=== PATIENT | female | born 1980 | race Caucasian/White ===

== ENCOUNTER 2020-10-18 16:51 | Emergency (ER) | payer BC, SELFPAY ==
--- NOTE | ~2020-10-18 | XR_ITS ---
EXAMINATION: XR hand LT min 3V EXAM DATE: 10/18/2020 17:12 INDICATION: Trauma fell bent fingers2-4backwards/pain knuckles to pip2-4. Initial encounter. TECHNIQUE: Left hand frontal, lateral and oblique projections obtained and reviewed. There is no adriana or study for comparison. FINDINGS: Left metacarpal bones are unremarkable. There are no acute fractures or dislocations ident ified. There is no subcutaneous gas. The soft tissue is unremarkable. There are no radiopaque for eign bodies. IMPRESSION: No acute osseous findings. Reviewed, dictated and finalized at location A. IMPRESSION: No acute osseous findings.
--- NOTE | 2020-10-18 17:00 | ED.UPPEXIN ---
HPI - Extremity Injury (Upper) General Chief Complaint: Extremity Problem,Nontraumatic Stated Complaint: left hand Time Seen by Provider: 10/18/20 17:00 Source: patient and RN notes reviewed Mode of arrival: ambulatory Limitations: no limitations History of Present Illness HPI narrative: 40 presents to the [facility] with complaints of left hand pain after tripping and falling forward. Patient states she landed on her left hand and bent fingers 2 through 5 backwards. Denies hitting head. No loss of consciousness. No snuffbox tenderness. Has full range of motion of the thumb, wrist, elbow and shoulder. No midline tenderness. Tender through the knuckles of fingers 2,3,4 and 5 along with PIP joints of 2,3,4 and 5. Minor swelling noted to the dorsal aspect Pain with making a fist. pain with movement of finger 2,3,4,5 Related Data Home Medications Medication Instructions Recorded Confirmed clonazepam 0.5 mg PO DAILY 10/18/20 10/18/20 duloxetine 60 mg PO DAILY 10/18/20 10/18/20 lamotrigine 100 mg PO DAILY 10/18/20 10/18/20 lisdexamfetamine [Vyvanse] 50 mg PO DAILY 10/18/20 10/18/20 Allergies Allergy/AdvReac Type Severity Reaction Status Date / Time codeine Allergy Severe Anaphylaxis Verified 10/18/20 17:08 Review of Systems Review of Systems: All systems reviewed & are unremarkable except as noted in HPI and below Constitutional: Constitutional: Reports no additional constitutional complaints, Denies chills and Denies fever(s) Eyes: Eyes: Reports no additional eye complaints, Denies change in vision and Denies photophobia Cardiovascular: Cardiovascular: Reports no additional cardiovascular complaints and Denies chest pain Respiratory: Respiratory: Reports no additional respiratory complaints, Denies cough and Denies dyspnea Gastrointestinal: Gastrointestinal: Reports no additional gastrointestinal complaints Musculoskeletal: Musculoskeletal: Reports as per HPI, Denies back pain, Reports arthralgias and Reports joint swelling Comments: Pain to the dorsal aspect left hand Integumentary/Breasts: Skin/Breast: Reports system reviewed and no additional complaints, except as docu, Denies erythema and Denies rash Neurologic: Reports system reviewed and no additional complaints, except as documented, Denies vertigo, Denies dizziness, Denies syncope, Denies headache(s), Denies focal weakness, Denies numbness and Denies weakness Psychiatric: Psychiatric: Reports no additional psychiatric complaints Allergic/Immunologic: Allergic/Immunologic: Reports no additional allergic/immunologic complaints PMFSH Family History Family History Father Family history of lung cancer Mother Family history of malignant neoplasm of esophagus Social History Social History Smoking status: Never smoker Alcohol intake: never Gender identity (if verbalized by the patient): Female Comments At the time of my signature, I reviewed and agree with the nursing past medical, surgical, social, and family history. There is no relevant family history pertinent to the patient complaint. Exam Const: General: healthy appearing, no acute distress and alert Nutritional Appearance: well nourished Orientation/consciousness: patient oriented x3 Limitations: no limitations HENMT: Head: normal to inspection Eyes: Pupils: Equal, round and reactive pupils present Neck: Neck: normal visual inspection, no lymphadenopathy and no meningeal signs Chest: Chest palpation & inspection: normal inspection of the chest Resp: Effort & Inspection: normal respiratory effort and no use of accessory muscles Auscultation: clear to auscultation bilaterally, no crackles, no rales, no rhonchi and no wheezes Cardio: Rate: regular rate Rhythm: regular rhythm Back/Spine/Pelvis: Back: no CVA tenderness Cervical Spine: normal cervical lordosis, cervical ROM normal and No
[2020-10-18 17:01] VITALS: BP 109/62; PULSE 78; RESP 18; TEMP 36.6; O2SAT 99
== END 2020-10-18 17:32 | disposition home or self-care (01) ==
PROVIDERS: Emergency Provider Nurse Practitioner
DX: S69.82XA Other specified injuries of left wrist, hand and finger(s), initial encounter (principal); W01.0XXA Fall on same level from slipping, tripping and stumbling without subsequent striking against object, initial encounter; F41.9 Anxiety disorder, unspecified; F32.9 Major depressive disorder, single episode, unspecified
CPT/HCPCS: 73130; 99213; G0463

== ENCOUNTER 2021-08-18 12:27 | Emergency (ER) | payer SELFPAY ==
[2021-08-18 12:39] VITALS: BP 110/68; PULSE 83; RESP 18; TEMP 36.8; O2SAT 100
--- NOTE | 2021-08-18 12:43 | ED.EYEPROB ---
HPI - Eye Problem General Chief complaint: Eye Problems Stated complaint: stye on rt eyelid Time Seen by Provider: 08/18/21 12:43 Source: patient Mode of arrival: ambulatory Limitations: no limitations History of Present Illness HPI Narrative: 41-year-old female presents with complaint of swelling, redness to lower lid of right eye for 3 to 5 days. Reports that it started small and is getting progressively worse with tenderness. No vision change. Does wear contacts but has had them out for several days since symptom started. All systems reviewed and negative except as noted above. Related Data Home Medications Medication Instructions Recorded Confirmed clonazepam 0.5 mg PO DAILY 10/18/20 08/18/21 duloxetine 60 mg PO DAILY 10/18/20 08/18/21 lamotrigine 100 mg PO DAILY 10/18/20 08/18/21 lisdexamfetamine [Vyvanse] 50 mg PO DAILY 10/18/20 08/18/21 Allergies Allergy/AdvReac Type Severity Reaction Status Date / Time codeine Allergy Severe Anaphylaxis Verified 08/18/21 12:43 Review of Systems Review of Systems: CONSTITUTIONAL: Denies fever, chills, or sweats. EYES: Denies visual changes, redness, or discharge. Reports erythema swelling tenderness to right lower lid. ENT: Denies rhinorrhea, congestion, sore throat, or otalgia. CARDIOVASCULAR: Denies chest pain, palpitations, or edema. RESPIRATORY: Denies cough or dyspnea. GASTROINTESTINAL: Denies abdominal pain, nausea, vomiting, or diarrhea. GENITOURINARY: Denies dysuria or hematuria. SKIN: Denies rash or itching. MUSCULOSKELETAL: Denies back pain, joint pain, or myalgia. NEUROLOGIC: Denies headache, numbness, or weakness. PSYCHIATRIC: Denies anxiety or depression. All other systems reviewed are negative, except as documented in HPI. [facility] Family History Family History Father Family history of lung cancer Mother Family history of malignant neoplasm of esophagus Social History Social History Smoking status: Never smoker Alcohol intake: never Gender identity (if verbalized by the patient): Female Comments At time of signature, agree with nursing past medical, surgical, social and family history. There is no relevant family history pertinent to the presenting complaint. Exam Narrative: GENERAL: This is a well-nourished, well-developed patient, in no apparent distress. HEAD: normocephalic, atraumatic. EYES: PERRL. Sclera clear/white. Vision is grossly intact. Erythema, swelling, tenderness to right lower lid. White pustule to internal aspect of right lower lid. EARS: External ears normal NOSE: External nose normal NECK: Neck supple, non-tender without lymphadenopathy, masses or thyromegaly. CARDIOVASCULAR: Regular rate and rhythm without murmurs, gallops, or rubs. RESPIRATORY: Clear to auscultation. Breath sounds equal bilaterally. No wheezes, rales, or rhonchi. SKIN: warm, Dry, intact with no suspicious lesions or rash, good texture and turgor. NEURO: awake, alert, and oriented to person, place and time. There were no obvious focal neurologic abnormalities. EXTREMITIES: Normal range of motion to all extremities. Course Course Level of Care: Express Care Visit Vital Signs Vital signs: Vital Signs Temperature 36.8 C 08/18/21 12:39 Pulse Rate 83 08/18/21 12:39 Respiratory Rate 18 08/18/21 12:39 Blood Pressure 110/68 08/18/21 12:39 Pulse Oximetry 100 08/18/21 12:39 Temperature 36.8 C 08/18/21 12:39 Pulse Rate 83 08/18/21 12:39 Respiratory Rate 18 08/18/21 12:39 Blood Pressure 110/68 08/18/21 12:39 Pulse Oximetry 100 08/18/21 12:39 Reviewed MDM - Eye Problem MDM Narrative Medical decision making narrative: Patient is aware of diagnosis, understands and agrees to treatment plan. Anticipatory guidance given. Patient agrees to follow-up as directed and is aware of reasons to seek care at the emergency departm
== END 2021-08-18 12:51 | disposition home or self-care (01) ==
PROVIDERS: Emergency Provider Nurse Practitioner Family; PCP Student in an Organized Health Care Education/Training Program
DX: H00.022 Hordeolum internum right lower eyelid (principal); F41.9 Anxiety disorder, unspecified; F32.A Depression, unspecified
CPT/HCPCS: 99213; G0463

== ENCOUNTER 2022-12-29 17:13 | Emergency (ER) | payer OTHER, SELFPAY ==
--- NOTE | 2022-12-29 17:16 | ED.EYEPROB ---
HPI - Eye Problem General Chief complaint: Eye Problems Stated complaint: Right Eye Irritation Time Seen by Provider: 12/29/22 17:16 Source: patient Mode of arrival: ambulatory Limitations: no limitations History of Present Illness HPI Narrative: Marshall is a 42-year-old female patient presenting to the clinic today with complaints of right eye irritation 1-2 days She reports she has had red, itchy, clear watery eyes. Does have some mild soreness to the right eye without any purulent drainage. Is concerned about pinkeye. Related Data Home Medications Medication Instructions Recorded Confirmed clonazepam 0.5 mg tablet 0.5 mg PO DAILY 10/18/20 12/29/22 duloxetine 60 mg capsule,delayed 60 mg PO DAILY 10/18/20 12/29/22 release lamotrigine 100 mg tablet 100 mg PO DAILY 10/18/20 12/29/22 lisdexamfetamine 50 mg capsule 50 mg PO DAILY 10/18/20 12/29/22 (Vyvanse) Allergies Allergy/AdvReac Type Severity Reaction Status Date / Time codeine Allergy Severe Anaphylaxis Verified 12/29/22 17:29 Review of Systems Review of Systems: Pertinent positives per HPI. Patient denies any fever, chills, rash, headache, visual changes, dizziness, cough, runny nose, sore throat, shortness of breath, chest pain, palpitations, nausea, vomiting, diarrhea, constipation, abdominal pain, or any urinary issues. [facility] Family History Family History Father Family history of lung cancer Mother Family history of malignant neoplasm of esophagus Social History Social History Smoking status: Never smoker Alcohol intake: never Gender identity (if verbalized by the patient): Female Comments At the time of my signature, I reviewed and agree with the nursing past medical, surgical, social, and family history. There is no relevant family history pertinent to the patient complaint. Exam Narrative: General: Well-developed, well nourished, in no apparent distress Head: Normocephalic, atraumatic Eyes: Pupils equally round and reactive to light bilaterally, EOM intact, bilateral sclera and conjunctive injected, no discharge, lids mildly tender to palpation but otherwise normal, no sign of foreign body or stye Ears: TMs intact and clear, ear canals clear, no drainage, grossly hearing normal. Nose: Nares patent, no discharge, no inflammation, no sinus tenderness. Mouth: Oropharynx without lesions or masses, good dentition, MMM. Neck: Supple, trachea midline, no enlargement of anterior or posterior cervical nodes, no thyroid masses or goiter palpable. Cardio: Regular rate and rhythm, s1 and s2 normal, no murmur appreciated. Resp: Clear to auscultation bilaterally anteriorly and posteriorly, no rhonchi, rales, wheezing or rubs Course Course Emergency Course: Portions of this record may have been created with voice recognition software. Level of Care: Express Care Visit Vital Signs Vital signs: Vital signs reviewed MDM - Eye Problem MDM Narrative Medical decision making narrative: At the time of visit patient is resting comfortably on the exam table. I suspect patient has allergic bilateral conjunctivitis. Prescription for azelastine drops were sent to the pharmacy. Supportive measures were discussed with the patient and she voiced understanding of the discharge instructions and agrees to treatment plan. Differential Diagnosis Differential diagnosis: Likely corneal abrasion, conjunctivitis, acute iritis, hyphema, periorbital cellulitis, subconjunctival hemorrhage, glaucoma, corneal ulcer and ruptured globe Discharge Plan Discharge Clinical Impression: Acute allergic conjunctivitis Qualifiers: Laterality: bilateral Qualified Code(s): H10.13 - Acute atopic conjunctivitis, bilateral Patient Disposition: Home, Self-Care Condition: Stable Instructions: Antibiotic Form, Conjunctivitis (ED) Additional
[2022-12-29 17:29] VITALS: BP 105/60; PULSE 89; RESP 16; TEMP 36.3; O2SAT 100
== END 2022-12-29 17:35 | disposition home or self-care (01) ==
PROVIDERS: Emergency Provider Nurse Practitioner Family; PCP Anesthesiology
DX: H10.13 Acute atopic conjunctivitis, bilateral (principal); F41.9 Anxiety disorder, unspecified; F32.A Depression, unspecified
CPT/HCPCS: 99212; G0463

== ENCOUNTER 2023-01-11 15:59 | Emergency (ER) | payer OTHER, SELFPAY ==
--- NOTE | 2023-01-11 16:02 | ED.GENADULT ---
HPI - General Adult General Chief complaint: Eye Problems Stated complaint: Rt Eye Irritation Time Seen by Provider: 01/11/23 16:08 Source: patient, RN notes reviewed and old records reviewed Mode of arrival: ambulatory Limitations: no limitations History of Present Illness HPI narrative: 42-year-old female presents to the [facility] with bilateral eye irritation, worse on the right than the left. Patient reports has been going on for over week. Has been using Zaditor eyedrops with minimal to no relief. Made a follow-up appointment with doctor next week. Related Data Home Medications Medication Instructions Recorded Confirmed clonazepam 0.5 mg tablet 0.5 mg PO DAILY 10/18/20 01/11/23 duloxetine 60 mg capsule,delayed 60 mg PO DAILY 10/18/20 01/11/23 release lamotrigine 100 mg tablet 100 mg PO DAILY 10/18/20 01/11/23 lisdexamfetamine 50 mg capsule 50 mg PO DAILY 10/18/20 01/11/23 (Vyvanse) levonorgestrel 21 mcg/24 hours (8 See Rx Instructions .Route .COMPLEX 01/11/23 01/11/23 yrs) 52 mg intrauterine device (Mirena) Allergies Allergy/AdvReac Type Severity Reaction Status Date / Time codeine Allergy Severe Anaphylaxis Verified 01/11/23 16:00 Review of Systems Review of Systems: All systems reviewed & are unremarkable except as noted in HPI and below Constitutional: Constitutional: Reports no additional constitutional complaints Eyes: Eyes: Reports as per HPI ENT: Reports system reviewed and no additional complaints, except as documented Cardiovascular: Cardiovascular: Reports no additional cardiovascular complaints, Denies chest pain and Denies dyspnea Respiratory: Respiratory: Reports no additional respiratory complaints, Denies chest congestion, Denies cough and Denies dyspnea Gastrointestinal: Gastrointestinal: Reports no additional gastrointestinal complaints, Denies abdominal pain, Denies nausea and Denies vomiting Musculoskeletal: Musculoskeletal: Reports no additional musculoskeletal complaints Integumentary/Breasts: Skin/Breast: Reports system reviewed and no additional complaints, except as docu Neurologic: Reports system reviewed and no additional complaints, except as documented Psychiatric: Psychiatric: Reports no additional psychiatric complaints Allergic/Immunologic: Allergic/Immunologic: Reports no additional allergic/immunologic complaints [facility] Surgical History Surgical History (Updated 01/11/23 @ 19:24 by Geni Reynaga APRN) H/O eye surgery Left corneal replacement Family History Family History Father Family history of lung cancer Mother Family history of malignant neoplasm of esophagus Social History Social History Smoking status: Never smoker Alcohol intake: never Gender identity (if verbalized by the patient): Female Comments At the time of my signature, I reviewed and agree with the nursing past medical, surgical, social, and family history. There is no relevant family history pertinent to the patient complaint. Exam Const: General: cooperative, healthy appearing, comfortable, no acute distress, well developed, alert and well nourished Nutritional Appearance: well nourished Orientation/consciousness: patient oriented x3 Limitations: no limitations HENMT: Head: normal to inspection Ears: hearing grossly normal bilaterally, external ears normal, TM's normal bilaterally, EAC's normal and mastoids normal Face/Nose/Sinus: Normal external nose present, Normal nares present, Normal nasal mucous membranes and turbinates present, normal facial exam and face symmetric Face and sinus: normal facial exam and face symmetric Mouth: Yes Normal oral and palatal mucosa present, Yes lip normal and Yes moist mucous membranes Throat: posterior oropharynx normal and uvula midline Eyes: General: appearance normal, both eyes and all related structures Alignment
[2023-01-11 16:07] VITALS: BP 108/61; PULSE 88; RESP 18; TEMP 36.9; O2SAT 98
== END 2023-01-11 16:21 | disposition home or self-care (01) ==
PROVIDERS: Emergency Provider Nurse Practitioner; PCP Student in an Organized Health Care Education/Training Program
DX: H57.13 Ocular pain, bilateral (principal)
CPT/HCPCS: 99213; G0463

== ENCOUNTER 2023-01-16 14:02 | Outpatient (CLI) | payer OTHER, SELFPAY ==
--- NOTE | ~2023-01-16 | MM_ITS ---
EXAMINATION: MM screening ashu BI w brady HISTORY: Screening mammogram TECHNIQUE: Craniocaudal and mediolateral oblique 3-D tomosynthesis images were obtained and synthetic 2-D images were generated. CAD analysis was submitted and interpreted. COMPARISON: 04/07/2019 bilateral screening mammogram BREAST PARENCHYMAL COMPOSITION: There are scattered areas of fibroglandular density. FINDINGS: There is no evidence of suspicious mass, calcification, or architectural distortion to sugg est malignancy in either breast. There has been no suspicious interval change. IMPRESSION: 1. No mammographic evidence of malignancy. 2. Recommend routine screening mammography in one year. BI-RADS Category 1: Negative Reviewed, dictated and finalized at location A.
== END 2023-01-16 14:03 | disposition home or self-care (01) ==
LOC: ANHIMG 14:05
PROVIDERS: PCP Student in an Organized Health Care Education/Training Program; Visit Provider Student in an Organized Health Care Education/Training Program
DX: Z12.31 Encounter for screening mammogram for malignant neoplasm of breast (principal)
CPT/HCPCS: 77063; 77067

== ENCOUNTER 2024-02-13 14:22 | Outpatient (CLI) | payer OTHER, SELFPAY ==
[2024-02-13 14:44] LABS: Basophils Percent Auto 0.8 % (0.2-1.2); Eosinophils Absolute Auto 0.1 K/mm3 (0-0.3); Eosinophils Percent Auto 1.3 % (0-4.4); Hematocrit 39.2 % (37.0-47.0); Hemoglobin 13.5 g/dL (12.0-15.0); Immature Granulocyte Absolute 0.01 K/mm3 (0.00-0.031); Immature Granulocyte Percent A 0.3 % (0-0.5); Lymphocytes Absolute Auto 1.26 K/mm3 (0.9-3.2); Lymphocytes Percent Auto 32.1 % (18.3-44.2); Mean Corpuscular HGB Conc 34.4 g/dl (32-36); Mean Corpuscular Hemoglobin 32.4 pg (26-34); Mean Platelet Volume 9.1 fl (7.4-10.4); Monocytes Absolute Auto 0.3 K/mm3 (0.1-0.6); Monocytes Percent Auto 7.4 % (2.6-8.5); Neutrophils Absolute Auto 2.3 K/mm3 (1.3-6.7); Neutrophils Percent Auto 58.1 % (45.5-73.1); Platelet Count Result 271 k/mm3 (150-375); Red Blood Count 4.17 M/mm3 (4.2-5.4); Red Cell Distribution Width 11.7 % (11.5-14.5); White Blood Count 3.9 K/mm3 (4.5-10.0)
[2024-02-13 14:58] LABS: Alanine Aminotransferase 17 U/L (6-35); Albumin Level 4.5 g/dL (3.5-5.1); Alkaline Phosphatase 43 U/L (38-126); Anion Gap 9 mmol/L (4-12); Aspartate Amino Transferase 25 U/L (14-36); Bilirubin,Total 2.1 mg/dL (0.2-1.3); Blood Urea Nitrogen 16 mg/dL (7-17); Calcium 9.5 mg/dL (8.4-10.2); Carbon Dioxide 26 mmol/L (22-30); Chloride 105 mmol/L (98-107); Cholesterol 207 mg/dL (0-200); Estimated Glomerular Filt Rate > 60; Glucose 90 mg/dL (65-110); HDL Direct 63 mg/dL; Potassium 3.7 mmol/L (3.4-5.0); Sodium 140 mmol/L (137-145); Triglycerides 47 mg/dL (<150)
[2024-02-13 15:09] LABS: LDL Cholesterol Direct 120 mg/dL
[2024-02-13 16:52] LABS: Vitamin D 25 Hydroxy 56.6 ng/mL
== END 2024-02-13 14:23 | disposition home or self-care (01) ==
LOC: ANHLAB 14:26
PROVIDERS: PCP Nurse Practitioner Women's Health; Visit Provider Student in an Organized Health Care Education/Training Program
DX: Z00.00 Encounter for general adult medical examination without abnormal findings (principal); Z13.29 Encounter for screening for other suspected endocrine disorder; Z13.228 Encounter for screening for other metabolic disorders; Z13.0 Encounter for screening for diseases of the blood and blood-forming organs and certain disorders involving the immune mechanism; E78.5 Hyperlipidemia, unspecified
CPT/HCPCS: 36415; 80053; 80061; 82306; 84443; 85025

== ENCOUNTER 2024-02-24 10:15 | Outpatient (CLI) | payer OTHER, SELFPAY ==
--- NOTE | ~2024-02-24 | US_ITS ---
EXAMINATION: US soft tissue head and neck DATE: 02/24/2024 10:33 INDICATION: Localized enlarged lymph nodes. TECHNIQUE: Multiple grayscale and Doppler ultrasound images of the head and neck were obtained. COMPARISON: None FINDINGS: In the right posterior head and neck in the patient's area of concern, there are normal sup erficial lymph nodes. IMPRESSION: 1. No abnormal mass or lymphadenopathy in the patient's area of concern in the right posterior head a nd neck. Reviewed, dictated and finalized at location A. CONDUCTOR TECHNICIAN IMPRESSION: 1. No abnormal mass or lymphadenopathy in the patient's area of concern in the right posterior head and neck.
== END 2024-02-24 10:16 | disposition home or self-care (01) ==
PROVIDERS: PCP Student in an Organized Health Care Education/Training Program; Visit Provider Student in an Organized Health Care Education/Training Program
DX: R59.0 Localized enlarged lymph nodes (principal)
CPT/HCPCS: 76536

== ENCOUNTER 2024-02-25 12:46 | Emergency (ER) | payer OTHER, SELFPAY ==
--- NOTE | 2024-02-25 12:52 | ED.URI ---
HPI - URI/Sore Throat General Chief Complaint: Upper Respiratory Infection Stated Complaint: sore throat Time Seen by Provider: 02/25/24 13:15 Source: patient Mode of arrival: ambulatory Limitations: no limitations History of Present Illness HPI Narrative: Janet is a 43-year-old female patient presenting to the clinic today with complaints of sore throat and nasal congestion x2 days. Denies any fever, chills, or body aches. She denies any chest pain or shortness of breath. MD elicited complaint: sore throat and nasal congestion Related Data Home Medications Medication Instructions Recorded Confirmed duloxetine 60 mg capsule,delayed 60 mg PO DAILY 10/18/20 02/25/24 release lisdexamfetamine 50 mg capsule 50 mg PO DAILY 10/18/20 02/25/24 (Vyvanse) levonorgestrel 21 mcg/24 hr (up to See Rx Instructions .Route .COMPLEX 01/11/23 02/25/24 8 years) 52 mg intrauterine device (Mirena) Allergies Allergy/AdvReac Type Severity Reaction Status Date / Time codeine Allergy Severe Anaphylaxis Verified 02/25/24 13:06 Review of Systems Review of Systems: Pertinent positives per HPI. Patient denies any fever, chills, rash, headache, visual changes, dizziness, cough, shortness of breath, chest pain, palpitations, nausea, vomiting, diarrhea, constipation, abdominal pain, or any urinary issues. PMFSH Surgical History Surgical History (Updated 01/11/23 @ 19:24 by Geni Reynaga APRN) H/O eye surgery Left corneal replacement Family History Family History Father Family history of lung cancer Mother Family history of malignant neoplasm of esophagus Social History Social History Smoking status: Never smoker Alcohol intake: never Gender identity (if verbalized by the patient): Female Comments At the time of my signature, I reviewed and agree with the nursing past medical, surgical, social, and family history. There is no relevant family history pertinent to the patient complaint. Exam Narrative: General: Well-developed, well nourished, in no apparent distress Head: Normocephalic, atraumatic Eyes: Pupils equally round and reactive to light bilaterally, EOM intact, sclera and conjunctive clear, no discharge, lids normal Ears: TMs intact and clear, ear canals clear, no drainage, grossly hearing normal. Nose: Nares patent, clear nasal discharge, no inflammation, no sinus tenderness. Mouth: Oral pharynx mildly red without lesions or masses, good dentition, MMM. Neck: Supple, trachea midline, no enlargement of anterior or posterior cervical nodes, no thyroid masses or goiter palpable. Cardio: Regular rate and rhythm, s1 and s2 normal, no murmur appreciated. Resp: Clear to auscultation bilaterally, no rhonchi, rales, wheezing or rubs Course Course Emergency Course: Portions of this record may have been created with voice recognition software. Level of Care: Express Care Visit Vital Signs Vital signs: Vital Signs Temperature 36.7 C 02/25/24 13:01 Pulse Rate 88 02/25/24 13:01 Respiratory Rate 16 02/25/24 13:01 Blood Pressure 104/62 02/25/24 13:01 Pulse Oximetry 100 02/25/24 13:01 Oxygen Delivery Room Air 02/25/24 13:01 Temperature 36.7 C 02/25/24 13:01 Pulse Rate 88 02/25/24 13:01 Respiratory Rate 16 02/25/24 13:01 Blood Pressure 104/62 02/25/24 13:01 Pulse Oximetry 100 02/25/24 13:01 Oxygen Delivery Room Air 02/25/24 13:01 Vital signs reviewed MDM - URI/Sore Throat MDM Narrative Medical decision making narrative: At the time of visit patient is resting comfortably on the exam table. Patient appears to be nontoxic. Labs: Strep test was negative in the clinic today. We will send for culture. Plan: I suspect patient has URI pharyngitis. Prescription for prednisone was sent to the pharmacy. Supportive measures were discussed with the patient and they voiced understanding discharge instructions and agrees to treatment plan. Return precautions reviewed Differential Diagnosis Differential diagnosis: Likely upper respiratory infection, otitis media, sinusitis, viral infection, bronchitis, influenza, pharyngitis and other (COVID) Lab Data Labs: Lab Results 02/25/24 Range/Units 13:09 POC Grp A Strep Screen Negative (Negative) Discharge Plan Discharge Clinical Impression: Upper respiratory infection, Pharyngitis Patient Disposition: Home, Self-Care Condition: Stable Instructions: Antibiotic Form, Pharyngitis (ED), Upper Respiratory Infection (ED) Additional Instructions: Take prescription medications only as prescribed-prednisone Increase fluids and stay well hydrated Tylenol/motrin for pain/fever Flonase and OTC antihistamines as directed Vicks vapor rub to open sinuses Sinus rinses for congestion Cepacol spray, cough drops, throat lozenges, warm tea with honey/lemon, gargle salt water to soothe throat BRAT diet for diarrhea Clear liquids x 24 hours then advance as tolerated for nausea/vomiting Go to the ED if you develop a worsening in your condition- high fever not controlled by Tylenol or Motrin, dehydration, weakness, lethargy, shortness of breath, or chest pain. Follow up with your PCP in 3-5 days if symptoms persist. Prescriptions: New prednisone 20 mg tablet 40 mg PO DAILY 5 Days Qty: 10 0RF No Action duloxetine 60 mg capsule,delayed release(DR/EC) 60 mg PO DAILY lisdexamfetamine [Vyvanse] 50 mg capsule 50 mg PO DAILY Mirena 21 mcg/24 hours (8 yrs) 52 mg Intrauterine Device See Rx Instructions .ROUTE .COMPLEX Rx Instructions: 21 mcg intrauterinely Follow-up/Referrals: Smitha,DO Chano [Primary Care Provider] - Time of Disposition: 13:37 Quality NIHSS Nursing Documentation ED NIHSS nursing documentation: reviewed/agree
[2024-02-25 13:01] VITALS: BP 104/62; PULSE 88; RESP 16; TEMP 36.7; O2SAT 100
[2024-02-25 13:10] LABS: EDSTREPNEGPOS1 Negative (Negative)
== END 2024-02-25 13:41 | disposition home or self-care (01) ==
PROVIDERS: Emergency Provider Nurse Practitioner Family; PCP Student in an Organized Health Care Education/Training Program
DX: J06.9 Acute upper respiratory infection, unspecified (principal); J02.9 Acute pharyngitis, unspecified
CPT/HCPCS: 87081; 87880; 99213; G0463

== ENCOUNTER 2024-04-06 00:04 | Day surgery (SDC) | payer OTHER, SELFPAY ==
[2024-04-02 15:05] VITALS: BMI 24.0
--- NOTE | 2024-04-02 15:23 | SUR.PREOP ---
Report to the Outpatient Waiting Room, entrance under the green pavilion located off [facility], at time _0845_ on date 04/06/24. Planned Procedure Time: _1045_.? Time changes happen often and if your time is changed the preop area will call you the afternoon before. - You and your visitor will be asked to self-screen and do not enter if you have any COVID symptoms. Please call surgeon if you need to reschedule. - A mask is optional within the hospital at this time. Patients may have clear liquids (water, carbonated beverages, clear teas, apple juice) until 3 hours prior to surgery with a maximum of 20 ounces. - No food from midnight until time of surgery and no smoking. This includes no chewing gum, candy or mints. - Infants may have breast milk until 4 hours before surgery, formula 6 hours prior to surgery. - Children will be allowed to drink immediately following surgery.? If applicable, please bring a bottle or sippy cup to assist with drinking. Juice, water, soda, and popsicles are readily available.? For infants on formula, please bring formula the day of surgery.? Pacifiers are allowed. Take only the following medications with a SIP of water on the morning of surgery: _CYMBALTA__ DO NOT STOP ANY OF YOUR OTHER PRESCRIPTION MEDICATIONS PRIOR TO SURGERY EXCEPT THE FOLLOWING Medications to discontinue per physician HOLD VYVANSE MORNING OF SURGERY Date to take last dose Please no make-up, nail faroese, hairspray, perfume, deodorant, or body powder the day of surgery.? No jewelry (including any body piercings) or valuables the day of surgery, leave them at home.? Please take a shower or bath the night before, or the morning of, surgery with an antibacterial soap.? Wear comfortable, loose fitting clothing.? Children are encouraged to wear pajamas. - Jewelry must be removed prior to entering the operating room.? Rings and piercings that are not removed may be cut off. - The hospital will not accept responsibility for valuables.? - Please leave all valuables, including medications, at home the day of surgery. If you are going home after surgery, a licensed services delivery driver must drive you home.? - NO public transportation without another adult if you receive anesthesia. - We recommend that an adult stay with you for 24 hours following discharge. - We also recommend that you do not drive, make important decision, drink alcoholic beverages, or take any drugs that were not prescribed by your health care provider for at least 24 hours after your discharge time. For Pediatric surgeries, we recommend two adults accompany the child home. Follow any additional instructions given to you from your surgeon. Telephone instructions given to __PATIENT___and asked if any additional questions and then verbalized understanding. Patient advised to call surgeon office or pre surgery nurse liaison [phone] if any additional questions.
--- NOTE | 2024-04-06 07:33 | P.HP_ITS ---
History of Present Illness History of Present Illness Consent: Risks, benefits, and alternatives have been discussed and questions answered. Patient agrees to proceed with procedure. Chief complaint: Missing IUD String Narrative: Janet Ellison is a 43 year old female with missing IUD strings. Attempt to remove the IUD in office was not successful. Plan to remove hysteroscopically under anesthesia. Due to cervical stenosis the patient has been given Cytotec and taken for the prior week. Risks of infection, bleeding, and perforation are reviewed. Patient voices understanding and agrees to proceed. Review of Systems Review of Systems: not repeated day of surgery; patient states no changes in status [facility] Past Medical History Medical History (Updated 04/06/24 @ 07:36 by Marleen Valdez MD) Depression with anxiety Surgical History Surgical History (Updated 04/06/24 @ 07:35 by Marleen Valdez MD) History of loop electrical excision procedure (LEEP) History of H/O eye surgery Left corneal replacement Family History Family History Father Family history of lung cancer Mother Family history of malignant neoplasm of esophagus Social History Social History Smoking status: Former smoker Alcohol intake: never Alcohol use details: SOCIALLY Living arrangements: with family Gender identity (if verbalized by the patient): Female Meds Home Medications and Allergies Home Medications ?Medication ?Instructions ?Recorded ?Confirmed ?Type lisdexamfetamine 50 mg capsule 50 mg PO DAILY 10/18/20 04/02/24 History (Vyvanse) duloxetine 30 mg capsule,delayed 30 mg PO DAILY 04/02/24 04/02/24 History release Allergies Allergy/AdvReac Type Severity Reaction Status Date / Time codeine Allergy Severe Anaphylaxis Verified 04/02/24 15:02 Exam Const: General: healthy appearing and alert Orientation/consciousness: patient oriented x3 Resp: Effort & Inspection: normal respiratory effort GI: GI Palp: Yes Soft to palpation, No Tenderness to palpation present (GI) and No Palpable mass present : External Female Exam: normal external appearance Speculum Exam - Vagina: normal appearance of the vagina and normal vaginal discharge Speculum Exam - Cervix: Other cervical findings present (Cervix is stenotic) Bimanual exam- vagina & uterus: uterine size normal and consistency normal Bimanual Exam- Adnexa, other: normal adnexae and No adnexal tenderness Neuro: General: patient oriented x3 Assessment and Plan Assessment and plan (1) IUD strings lost: Code(s): T83.32XA - Displacement of intrauterine contraceptive device, initial encounter Status: Acute Assessment and Plan: Plan to proceed with hysteroscopic removal of IUD
--- NOTE | 2024-04-06 07:33 | WPDHPUPDATE1 ---
History and Physical Update Update Date/Time: 04/06/24 07:33 History and Physical has been reviewed, including an updated exam of the patient. There are NO changes in the patient's condition. Risks, benefits, and alternatives have been discussed and questions answered. Patient agrees to proceed with procedure.
--- NOTE | 2024-04-06 08:52 | P.PNAN_ITS ---
Anes - Initial Pre Proc Eval Procedure: Operation Date: 04/06/24 10:45 Proposed Procedures p Hysteroscopy with Intrauterine Device Removal - Marleen Valdez MD Date/Time: 04/06/24 08:52 Surgeon: Marleen Valdez MD Pre Op Diagnosis: Missing IUD String Patient Data Age: 43 Gender: F Height: 1.63 m Weight: 63.5 kg Allergies Allergy/AdvReac Type Severity Reaction Status Date / Time codeine Allergy Severe Anaphylaxis Verified 04/06/24 09:38 Home Medications ?Medication ?Instructions ?Recorded ?Confirmed ?Type lisdexamfetamine 50 mg capsule 50 mg PO DAILY 10/18/20 04/02/24 History (Vyvanse) duloxetine 30 mg capsule,delayed 30 mg PO DAILY 04/02/24 04/06/24 History release Patient hx anesthesia problems: none Family hx anesthesia problems: none Results Review: All pre-operative results and documents have been reviewed as part of the pre- operative evaluation. [facility] Past Medical History Medical History (Updated 04/06/24 @ 07:36 by Marleen Valdez MD) Depression with anxiety Surgical History Surgical History (Updated 04/06/24 @ 07:35 by Marleen Valdez MD) History of loop electrical excision procedure (LEEP) History of H/O eye surgery Left corneal replacement Family History Family History Father Family history of lung cancer Mother Family history of malignant neoplasm of esophagus Social History Social History Smoking status: Former smoker Alcohol intake: never Alcohol use details: SOCIALLY Living arrangements: with family Gender identity (if verbalized by the patient): Female Anes - Eval Final PreProcedure Day of Procedure 04/06/24 08:52 Patient weight: normal Heart: regular rate and rhythm Lungs: clear to auscultation and normal air movement Airway: Mallampati scale class II Neurological: alert and oriented Last oral intake: >/= 8 hours ASA classification: II Emergent: no Anesthetic plan: proceed Anesthesia type and monitoring: general GIVS and standard monitoring Results Review: All pre-operative results and documents have been reviewed as part of the pre- operative evaluation. Informed Consent: The patient's anesthetic plan and its attendant risks and benefits were discussed with the patient/family/POA. Questions were solicited and answers provided to the satisfaction of the patient/family/POA.
[2024-04-06] MEDS: LACTATED RINGERS 1,000 ML 30 ML IV CONT (09:15)
[2024-04-06] MEDS: ACETAMINOPHEN 500 MG TABLET 1000 MG PO (09:15)
[2024-04-06 09:44] VITALS: BP 102/59; PULSE 78; RESP 16; TEMP 36.2; O2SAT 100
[2024-04-06 09:49] LABS: BEDSIDEPREGUCG Negative (Negative)
[2024-04-06 10:52] VITALS: BP 89/50; PULSE 75; RESP 16; O2SAT 94
--- NOTE | 2024-04-06 10:55 | W.PM.PROC2 ---
Procedure Note - Detailed Date of Procedure 04/06/24 Pre-op Diagnosis Missing IUD String Post-op Diagnosis Same Procedure Performed Hysteroscopic removal of IUD Surgeon Marleen Valdez MD Anesthesia MAC Findings Uterus sounds to 9cm. The IUD is upside down and the base is embedded at the fundus. The endometrium appears grossly normal. Description of Procedure The patient was taken to the operating room and placed under anesthesia in the dorsal lithotomy position. She was prepped and draped usual sterile fashion. Wenonah speculum was placed in vagina and cervix was grasped anterior lip with a tenaculum. The uterus is sounded to 9cm. The diagnostic hysteroscope was placed and strings are quickly identified. The graspers were used to grasp the strings and the IUD does not move when attempting to remove the hysteroscope with the IUD. The hysteroscope was replaced and the arm of the IUD identified. The arm was grasped with a grasper and with some tension the IUD was removed intact. It appears that the IUD was embedded in the fundus and was turned 180? with the T portion and the lower uterine segment. All instruments were then removed. Estimated Blood Loss 5 Drains No Packing No Pathology None sent Complications No immediate complications Condition Stable Disposition PACU
[2024-04-06 11:20] VITALS: BP 86/50; PULSE 69; RESP 16; O2SAT 98
[2024-04-06 11:50] VITALS: BP 94/59; PULSE 64; RESP 16
== END 2024-04-06 12:00 | disposition home or self-care (01) ==
PROVIDERS: PCP Student in an Organized Health Care Education/Training Program; Visit Provider Obstetrics & Gynecology Gynecology
PROC: 0U5B8ZZ Destruction of Endometrium, Via Natural or Artificial Opening Endoscopic (ICD-10-PCS; CPT 58563; principal; 2024-04-06 10:45)
DX: T83.32XA Displacement of intrauterine contraceptive device, initial encounter (principal); M48.02 Spinal stenosis, cervical region; F41.8 Other specified anxiety disorders; Y83.8 Other surgical procedures as the cause of abnormal reaction of the patient, or of later complication, without mention of misadventure at the time of the procedure; Z98.890 Other specified postprocedural states; Z87.891 Personal history of nicotine dependence; Z80.1 Family history of malignant neoplasm of trachea, bronchus and lung; Z80.0 Family history of malignant neoplasm of digestive organs
CPT/HCPCS: 58562; A9270; J2003; J2250; J2704; J3010; J7120

== ENCOUNTER 2024-07-02 14:07 | Outpatient (CLI) | payer BC, SELFPAY ==
[2024-07-02 14:29] LABS: Basophils Percent Auto 0.5 % (0.2-1.2); Eosinophils Absolute Auto 0.3 K/mm3 (0-0.3); Eosinophils Percent Auto 7.5 % (0-4.4); Hematocrit 38.2 % (37.0-47.0); Hemoglobin 13.1 g/dL (12.0-15.0); Immature Granulocyte Absolute 0.01 K/mm3 (0.00-0.031); Immature Granulocyte Percent A 0.3 % (0-0.5); Lymphocytes Absolute Auto 1.46 K/mm3 (0.9-3.2); Lymphocytes Percent Auto 36.5 % (18.3-44.2); Mean Corpuscular HGB Conc 34.3 g/dl (32-36); Mean Corpuscular Hemoglobin 31.6 pg (26-34); Mean Platelet Volume 8.9 fl (7.4-10.4); Monocytes Absolute Auto 0.4 K/mm3 (0.1-0.6); Monocytes Percent Auto 10.5 % (2.6-8.5); Neutrophils Absolute Auto 1.8 K/mm3 (1.3-6.7); Neutrophils Percent Auto 44.7 % (45.5-73.1); Platelet Count Result 277 k/mm3 (150-375); Red Blood Count 4.15 M/mm3 (4.2-5.4); Red Cell Distribution Width 11.6 % (11.5-14.5)
--- OUTSIDE RECORDS SUMMARY | 2024-07-02 15:03 | XMS_ITS | Clinical Summary ---
Author Organization [facility] Address [facility] [place] [address] Care Team Providers Care Patent Lawyer Name Role Phone Chano Bone Primary Care Provider + Allergies Active Allergy Reactions Criticality Noted Date Comments Codeine Anaphylaxis High 06/27/2021 Medications VYVANSE 70 MG capsule 3 Active CYMBALTA 30 MG capsule 1 capsule (30 mg total). 4 Active levonorgestrel (MIRENA) 20 MCG/DAY IUD 1 Intra Uterine Device by Intrauterine route once. 3 Active Active Problems Problem Noted Date Diagnosed Date Cancer of skin of right lower leg 04/25/2022 Encounters Date Type Department Care Team Description 04/06/2024 Scan [facility] Scanned, [facility] Procedure (SCAN); Lab (SCAN) from Last 3 Months Immunizations Name Administration Dates Next Due PFIZER COVID-19 (ORIGINAL FO RMULATION, PURPLE CAP) mRNA, LNP-S, PF, 30 MCG/0.3 ML DOSE 11/23/2021 Tdap (Generic) 07/07/2013 Family History Medical History Relation Comments Lung Cancer Father TB Father Depression Maternal Aunt Cancer Maternal Grandfather Mental Health Maternal Grandmother Cancer Mother tongue and esoph ageal Relation Status Comments Father Maternal Aunt Maternal Grandfather Maternal Grandmother Mother Social History Tobacco Use Types Packs/Day Years Used Date Smoking Tobacco: Never Smokeless Tobacco: Never Tobacco Cessation:Counseling Given: Not Answered Alcohol Use Standard Drinks/Week Comments Yes 5 (1 standard drink = 0.6 oz pur e alcohol) 3-4 times a month PHQ-2 Answer Date Recorded Patient Health Questionnaire-2 Score 0 02/19/2024 Comments No Sex and Gender Information Value Date Recorded Sex Assigned at Not on file Legal Sex Female 10:48 AM ISO COORDINATOR Gender Identity Female 06/27/2021 3:55 PM CDT Sexual Orientation Straight 06/27/2021 3: 55 PM CDT Occupation Industry Job Start Date Job End Date Not on file Not on file Not on file Not on file Last Filed Vital Signs Vital Sign Reading Time Taken Comments Blood Pressure 108/70 02/19/2024 9:56 AM ISO COORDINATOR Pulse 71 02/19/2024 9:56 AM ISO COORDINATOR Temperature 36.5 C (97.7 F) 02/19/2024 9:56 AM ISO COORDINATOR Respiratory Rate 16 02/19/2024 9:56 AM ISO COORDINATOR Oxygen Saturation 98% 02/19/2024 9:56 AM ISO COORDINATOR Inhaled Oxygen Concentration - - Weight 63.8 kg (140 lb 11.2 oz) 02/19/2024 9:56 AM ISO COORDINATOR Height 162.6 cm (5' 4 ) 02/19/2024 9:56 AM ISO COORDINATOR Body Mass Index 24.15 02/19/2024 9:56 AM ISO COORDINATOR Plan of Treatment Health Maintenance Due Date Last Done Comments Colorectal Cancer Screening Colonoscopy (10 Years) 1978 Cervical Cancer Screening Pap Smear (Age 30 to 64) Every 3 Years 11/26/2022 11/27/2019, 11/27/2019, 07/13/2019, Additional history exists Annual Physical 03/15/2023 03/15/2022, 06/27/2021 Mammogram Screening 01/17/2024 01/16/2023, 9 Cervical Cancer Screening Pap with HPV Testing (Age 30 to 64) Every 5 Years 03/17/2024 03/17/2019, 12/27/2015 Cervical Cancer Screening with HPV 03/17/2024 PHQ-2 (Physician [place]) 04/08/2024 02/19/2024 COVID-19 Vaccine ( season) 2025 12/22/2021, 11/23/2021 Postponed from 12/08/2023 (Patient Refused) DTaP, Tdap and Td Vaccines (2 - Td or Tdap) 02/18/2025 07/07/2013 Postponed from 07/08/2023 (Patient Refused) Hepatitis B Vaccines (1 of 3 - 19+ 3-dose series) 02/18/2025 Postponed from 1997 (Patient/Guardian Refusal) Influenza Adult (#1) 2025 Postpon ed from 01/07/2024 (Patient Refused) Hepatitis C Completed 06/27/2021 HPV Vaccines Aged Out No longer eligi ble based on patient's age to complete this topic Meningococcal B Vaccine Aged Out No l onger eligible based on patient's age to complete this topic Meningococcal Vaccine Aged Out No preet edie eligible based on patient's age to complete this topic Pneumococcal Vaccine: Pediatrics (0 to 5 Years) and At-Risk Patients (6 to 64 Years) Aged Out No longer eligible based on patient's age to complete this topic RSV Immunizations Under 20 Months Aged Out No longer eligible based on patient's age to complete this topic Procedures Procedure Name Priority Date/Time Associated Diagnosis Comments OUTSIDE LAB (SCAN ORDER) 04/06/2024 PROCEDURE GENERIC (SCAN ORDER) 04/06/2024 MAMMOGRAM GENERIC (SCAN ORDER) 01/16/2023 HEPATITIS C ANTIBODY Routine 06/27/2021 10:23 AM CDT Encounter for preventative adult health care examination Need for hepatitis C screening test OUTSIDE CYTOPATH CERV/VAG INTERPRET (PAP) (SCAN ORDER) 11/27/2019 OUTSIDE CYTOPATH CERV/VAG INTERPRET (PAP) 03/17/2019 from Last 3 Months or Most Recently Relevant to Health Maintenance Results * OUTSIDE LAB (SCAN ORDER) (04/06/2024) 04/06/2024 [facility] Scanned SCANNING Final Resu lt * PROCEDURE GENERIC (SCAN ORDER) (04/06/2024) 04/06/2024 [facility] Scanned SCANNING Final Resu lt * MAMMOGRAM GENERIC (01/16/2023) Anatomical Region Laterality Modality Other 01/16/2023 [facility] Scanned SCANNING Final Resu lt * HEPATITIS C ANTIBODY (06/27/2021 10:23 AM CDT) HEPATITIS C AB NON-REACTI VE NON-REACT YO 06/27/2021 7:[address] [facility] Comment: ANTIBODIES TO HCV NOT DETECTED. DOES NOT EXCLUDE THE POSSIBILITY OF EXPOSURE TO HCV. 06/27/2021 10:2 3 AM CDT us Chano Bone DO LABORATORY Final Re sult [facility] [address] [place] [address], [id number] * OUTSIDE CYTOPATH CERV/VAG INTERPRET (PAP) (11/27/2019) 11/27/2019 Narrative 11/27/2019 Ordered by an unspecified provider. us Documents Scanned SCANNING Final Result * OUTSIDE CYTOPATH VAG/CERV PAP WITH HPV (03/17/2019) 03/17/2019 Narrative 03/17/2019 Ordered by an unspecified provider. us Documents Scanned SCANNING Final Result from Last 3 Months or Most Recently Relevant to Health Maintenance Insurance [facility] [place] [id number] Care Teams Patent Lawyer Relationship Specialty Start Date End Date Chano Bone DO [address] [place], [place] [id number] PCP - General FAMILY PRACTICE 06/27/21
--- OUTSIDE RECORDS SUMMARY | 2024-07-02 15:03 | XMS_ITS | Encounter Summary ---
Author Organization [facility] Address [facility] [place] [address] Care Team Providers Care Gumming Machine Operator Name Role Phone Chano Bone DO Primary Care Provider + Encounter Details Date Type Department Care Team (Late Contact Info) Description 02/25/2023 [employer] Message Enc [facility] Medical [facility] Family & Internal Medicine 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 Gender Identity Female 06/27/2021 3:55 PM CDT Sexual Orientation Straight 06/27/2021 3: 55 PM CDT Occupation Industry Job Start Date Job End Date Not on file Not on file Not on file Not on file documented as of this encounter Plan of Treatment Not on file documented as of this encounter Visit Diagnoses Not on filedocumented in this encounter Additional Health Concerns Assessment Noted Time PHQ-9 Depression Total Score: 8 06/28/19 9:47 AM CDT documented as of this encounter Care Teams Gumming Machine Operator Relationship Specialty Start Date End Date Chano Bone DO [address] [place] [id number] PCP - General FAMILY PRACTICE 06/27/21 documented as of this encounter
--- OUTSIDE RECORDS SUMMARY | 2024-07-02 15:03 | XMS_ITS | Encounter Summary ---
Author Organization [facility] Jimenez [facility] Address [address] [place] [address] Care Team Providers Care Cmm Programmer Name Role Phone Unavailable Primary Care Provider Unavailabl e Reason for Referral * Radiology Services (Routine) - Closed Specialty Diagnoses / Procedures Referred By Contac t Referred To Contact Diagnoses Leukopenia, unspecified type Procedures US ABDOMEN COMPLETE Darshan Ventura MD [address] [place] [id number] Phone: tel: fax: [place] [phone] Referral ID Status Reason Start Date Expiration Date V isits Requested Visits Authorized [id number] Closed [facility] CTS 2024 08/02/2025 1 1 Reason for Visit * Reason Comments Establish Care Encounter Details Date Type Department Care Team (Late st Contact Info) Description 2024 1:30 PM CDT Office Visit [facility] Oncology and Hematology [address] [place] [address] Darshan Ventura MD [address] [place] [address] Leukopenia, unspecified type (Primary Dx) Social History Tobacco Use Types Packs/Day Years Used Date Smoking Tobacco: Never Smokeless Tobacco: Never Alcohol Use Standard Drinks/Week Comments Yes 0 (1 standard drink = 0.6 oz pur e alcohol) Occasionally Comments Unknown Sex and Gender Information Value Date Recorded Sex Assigned at Not on file Legal Sex Female 9:11 AM [employer] K[employer] Gender Identity Not on file Sexual Orientation Not on file documented as of this encounter Last Filed Vital Signs Vital Sign Reading Time Taken Comments Blood Pressure 119/74 2024 1:30 PM CDT Pulse 79 2024 1:30 PM CDT Temperature 36.1 C (96.9 F) 2024 1:30 PM CDT Respiratory Rate 16 2024 1:30 PM CDT Oxygen Saturation 98% 2024 1:30 PM CDT Inhaled Oxygen Concentration - - Weight 65.5 kg (144 lb 6.4 oz) 2024 1:30 P M CDT Height 162.6 cm (5' 4 ) 2024 1:30 PM CDT Body Mass Index 24.79 2024 1:30 PM CDT documented in this encounter Progress Notes * Darshan Ventura MD - 2024 1:37 PM CDT Hematology-oncology consult Note Requesting Physician Primary Care Physician No primary care provider on file. Problem list There is no problem list on file for this patient. Previous TREATMENT ? Measurable Disease ? Reason for Visit Janet Ellison is a 44 y.o. female who was referred for consultation for leukopenia. History of present illness This is a pleasant 44-year-old female who has been in good health except history of binging eating disorder along with anxiety and depression. She had labs done back in February 2024 that showed low white blood cell count of 3.9. According to patient she has been dealing with low white blood cell more than 5 years duration. She denies any night sweats fever chills. Denies any diarrhea and constipation. She is currently dealing with rash in both hands likely secondary to gloves she is using it to work. She denies any bleeding. She has lost 40 pound weight 2 years ago while she was onMounjaro. Currently she denies any further weight loss. She denies any history of liver disease. Noother new complaints. Past Medical History Past Medical History: Diagnosis Date Depression Binge eating disorder Surgical History Past Surgical History: Procedure Laterality Date HX SECTION 2004 Medications Current Outpatient Medications Medication Sig Dispense Refill lisdexamfetamine (VYVANSE) 60 mg capsule Take 60 mg by mouth daily in the morning. DULoxetine (CYMBALTA) 30 mg Capsule, Delayed Release(E.C.) Take 1 Capsule by mouth daily. No current facility-administered medications for this visit. Allergies Allergies Allergen Reactions Codeine Anaphylaxis Immunizations: There is no immunization history on file for this patient. Family History Family History Problem Relation Name Age of Onset Diabetes Father Lung Cancer Father Esophageal Cancer Mother Tongue Cancer Mother No Known Problems Brother No Known Problems Brother No Known Problems Brother No Known Problems Sister Social History Social History Tobacco Use Smoking status: Never Smokeless tobacco: Never Substance Use Topics Alcohol use: Yes Comment: Occasionally Review of Systems Constitutional: Patient did not mention fever; no night sweats; no anorexia; no weight loss; no fatique NEENT: Patient did not mention headache; no change in vision; no change in hearing; no sore throat;no dysphagia Respiratory: Patient did not mention shortness of breath; no pleuritic chest pain; no cough; no hemoptysis Cardiac: Patient did not mention cardiac-like chest pain; no palpitations; no orthopnea; no PND; noDOE Breasts: Patient did not mention tenderness; no masses GI: Patient did not mention abdominal pain; no nausea; no vomiting; no diarrhea; no hematochezia; no melena : Patient did not mention dysuria; no frequency; no hesitancy; no hematuria [employer]: Musculosketetal: Patient did not mention bone pain; no arthralgia; no joint swelling; no myalgia; Skin: Patient did not mention pruritis; rash on both hands with itching Endocrine: Patient did not mention polydipsia; no polyuria; no unusual weight gain Neuro: Patient did not mention headache; no change in vision; no sensory changes; no muscle weakness; no confusion; no seizures Psych: Patient did not mention anxiety; no depression; Physical Exam Vitals: As per nursing note Constitutional: Well developed, well nourished, no acute distress, non-toxic appearance Teeth and gum. No signs of infection or swelling. Eyes: PERRL, conjunctiva normal HEENT: Atraumatic, external ears normal, nose normal, oropharynx moist, no pharyngeal exudates. no sinus tenderness Neck- normal range of motion, no tenderness, supple Respiratory: No respiratory distress, normal breath sounds, no rales, no wheezing Cardiovascular: Normal rate, normal rhythm, no murmurs, no gallops, no rubs GI: Soft, nondistended, normal bowel sounds, nontender, no splenomegaly, no hepatomegaly, no mass, no rebound, no guarding : No costovertebral angle tenderness Musculoskeletal: No edema, no tenderness, no deformities. Back- no tenderness Integument: Well hydrated, bilateral hand rash Digits and nails inspection normal Lymphatic: No lymphadenopathy noted Neurologic: Alert & oriented x 3, CN 2-12 normal, normal motor function, normal sensory function, no focal deficits noted Psychiatric: Speech and behavior appropriate ? labs No results found for this or any previous visit (from the past 24 hours). Labs from February 12 showed WBC 3.9 hemoglobin 13.5 platelet 271,000 neutrophil 56% lymphocyte 32% Pathology ? Imaging & Other Studies Performance Status? Assessment / Plan: ? Leukopenia. Patient is a pleasant 44-year-old female who has been in good health except history of binge eating disorder along with anxiety and depression. Patient is taking Cymbalta and Vyvanse. She had labs done in February of last year that showed slightly low white cells. According topatient she has been dealing with low white blood cell for 5 years duration. Her other labs showed elevated bilirubin level. Patient lost almost 40 pound weight 2 years ago. It is possible that she may have underlying hepatic steatosis with splenomegaly secondary to previous obesity. On my examination there is no evidence of lymphadenopathy and hepatosplenomegaly. I have discussed the differential diagnosis of leukopenia with the patient that include drug-induced leukopenia, autoimmune leukopenia, bone marrow disorders, infection related leukopenia, nutritional deficiencies and benign essential leukopenia. I will order CBC with differential, CMP, SALLY and flow cytometric analysis along with a bdominal ultrasound. Anxiety and depression. Patient is on Cymbalta. Binge eating disorder. Patient is on Vyvanse. Thank you very much for allowing me to participate in Janet Ellison's evaluation and management.Please feel free to contact if I can be of any further assistance in your patient???s care requiring hematology or oncology evaluation. Sincerely, ? ? Darshan Ventura M.D. cell TOBACCO COUNSELING She is not a tobacco/nicotine user. Darshan Ventura MD ,2024 1:53 PM ? Total time spent 60 minutes, two third of the total time spent counseling patient [id number]. CC:? documented in this encounter Plan of Treatment Upcoming Encounters Date Type Department Care Team (Late st Contact Info) Description 07/21/2024 4:15 PM CDT Telephone Check Up [facility] Oncology and Hematology - [place] [address] [facility] [address] [place] [address] Darshan Ventura MD [address] [facility] [address] [place] [address] Scheduled Orders Name Type Priority Associated Diagnoses Orde r Schedule CBC WITH DIFFERENTIAL Lab Stat Leukopenia, unspecified type Expected: 2024, Expires: 2025 COMPREHENSIVE METABOLIC PANEL Lab Stat Leukopenia, unspecified type Expected: 2024, Expires: 2025 FLOW CYTOMETRY PANEL Lab Routine Leukopenia, unspecified type Expected: 2024, Expires: 2025 SALLY SCREEN W/REFLEX Lab Routine Leukopenia, unspecified type Expected: 2024, Expires: 2025 US ABDOMEN COMPLETE Imaging Routine Leukopenia, unspecified type 1 Occurrences starting 2024 until 2025 documented as of this encounter Visit Diagnoses Diagnosis Leukopenia, unspecified type- Primary documented in this encounter
--- OUTSIDE RECORDS SUMMARY | 2024-07-02 15:03 | XMS_ITS ---
Author Organization [facility] ! Address [address] [place] [address] Care Team Providers Care Account Resolution Expert Name Role Phone Brojanessayoshi GeniaChano Primary Care Provider Raven shresthachapitoAnoop Thomas Unavailable [phone] Allergies Allergen (clinical drug ingredient) Drug/Non Drug Allergy documented on EMR Reaction Allergy Type Onset Date Status codeine Codeine Unknown Drug Allergy 06/11/2023 Active Results Component Value Reference Range Notes UDT Reviewed date:05/26/2024 02:09:53 PM Interpretation: Performing Lab: Notes/Report: THC N 0 - 50 ng/ml Cocaine N 0 - 300 ng/ml Amphetamine P 0 - 1000 ng/ml Buprenorphine (BUP) N 0 - 10 ng/ml Secobarbital (Bar) N 0 - 300 ng/ml Oxazepam (BZO) N 0 - 300 ng/ml 3-drsqbrbbsd-7,5-iprrgagg-8,3-diphenylpyrrolidine (JENN P) N 0 - 300 ng/ml Methamphetamine (MET) N 0 - 1000 ng/ml Methylenedioxymethamphetamine (MDMA) N 0 - 500 ng/ml Morphine (MOP 300/GIQ9500) N 0 - 300 ng/ml Methadone (MTD) N 0 - 300 ng/ml Phencyclidine (PCP) N 0 - 25 ng/ml Nortriptyline (TCA) N 0 - 1000 ng/ml Oxycodone N 0 - 300 ng/ml x N 0 - 300 ng/ml REASON FOR VISIT checked in, Depression screening negative, follow-up, UDT Visit, UDT done Medications Medication SIG (Take, Route, Frequency, Duration) Notes Start Date End Date Status Vyvanse 70 MG TAKE 1 CAPSULE BY MO UTH ONCE DAILY IN THE MORNING FOR 30 DAYS Oral for 30 Days Not-Taking Mounjaro 5 MG/0.5ML INJECT 5MG SUBCUTANEOUSLY ONCE A WEEK, EVERY 7 DAYS Subcutaneous for 28 Days Not-Taking Vyvanse 70 MG Oral for 30 Days Not-Taking DULoxetine HCl 60 MG Oral for 30 Days Not-Taking lamoTRIgine 100 MG Oral for 30 Days Not-Taking prednisoLONE Acetate 1 % Ophthalmic for 25 Days Not-Taking Azelastine HCl 0.05 % INSTILL 1 DROP INT O EACH EYE TWICE DAILY FOR 7 DAYS Ophthalmic for 25 Days Not-Taking Azelastine HCl 0.05 % Ophthalmic for 25 Days Not-Taking lamoTRIgine 100 MG TAKE 1 TABLET BY CURTIS TWICE DAILY Oral for 30 Days Not-Taking Polymyxin B-Trimethoprim 15322-5.1 UNIT/ML Ophthalmic for 5 Days N ot-Taking Zepbound 5 MG/0.5ML INJECT 5MG SUBCUTANEOUSLY ONCE A WEEK, EVERY 7 DAYS Subcutaneous for 28 Days Not-Taking DULoxetine HCl 60 MG TAKE 1 CAPSULE BY M OUTH ONCE DAILY Oral for 30 Days Not-Taking Vyvanse 50 MG Oral for 30 Days Not-Taking Vyvanse 50 MG TAKE 1 CAPSULE BY MO UTH ONCE DAILY IN THE MORNING Oral for 30 Days Not-Taking Lisdexamfetamine Dimesylate 50 MG Oral for 20 Days Not-Mark ing Lisdexamfetamine Dimesylate 60 MG 1 capsule in the morning Oral Once a day for 30 days 05/20/2024 Active DULoxetine HCl 30 MG 1 capsule Oral Once a day for 90 days Active Social History Tobacco Use: Social History Observation Description Date Details (start date - stop date) Never Smoker NA - NA Sex Assigned At : Social History Observation Description Sex Assigned At Female Tobacco Control (Standard) Question Answer Notes Tobacco use: Nonsmoker Vital Signs Blood pressure systolic 105 mm Hg 05/26/19 25 Blood pressure diastolic 69 mm Hg 025 Heart Rate 79 /min 05/26/2024 Height 64.00 in 05/26/2024 Weight 143 lbs 05/26/2024 BMI 24.54 kg/m2 05/26/2024 Height-cm 162.56 cm 05/26/2024 Weight-kg 64.86 kg 05/26/2024 Encounters Encounter Location Date Provider Diagnosis [facility] [address] [place] [address] 05/26/2024 Anoop Heard Major depressive disorder, recurrent, mild F33.0 ; Generalized anxiety disorder F41.1 ; Attention-deficit hyperactivity disorder, combined type F90.2 and Binge eating disorder, mild F50.810 Assessments Encounter Date Diagnosis (ICD Code) Assessment Notes Treatment Notes Treatment Clinical Notes Section Notes 05/26/2024 Major depressive disorder, recurrent, mild (ICD-10 - F33.0) 05/26/2024 Generalized anxiety disorder (ICD-10 - F41.1) stable 05/26/2024 Attention-defici t hyperactivity disorder, combined type (ICD-10 - F90.2) lisedexamfetamine 60mg daily BOXED WARNINGCaution with history of drug dependence or alcoholism. Marked tolerance and psychological dependence may result from chronic abusive use. George psychotic episodes may occur, especially with parenteral abuse. Careful supervision required for withdrawal from abusive use to avoid severe depression. Withdrawal following chronic use may unmask symptoms of underlying disorder that may require follow-up 05/26/2024 Binge eating disorder, mild (ICD-10 - F50.810) lisdexamfetamine 60mg daily 05/26/2024 Other 1. ADHD: - Patient reports Vyvanse 60 mg is working well with no side effects. Plan: - Continue Vyvanse 60 mg daily. 2. Depression: - Patient reports duloxetine 30 mg is working well with no side effects. Plan: - Continue duloxetine 30 mg daily. 3. Anxiety: - Patient denies any anxiety symptoms. Plan: - No intervention needed at this time. 4. Hormonal changes: - Patient had IUD removed in March and reports no mood changes or issues. Plan: - Monitor for any mood changes or symptoms related to hormonal fluctuations. Follow-up: - Schedule a follow-up appointment in 4 months to reassess the patient's progress and medication effectiveness. Plan Of Treatment Medication Medication Name Sig Start Date Stop Date Notes Lisdexamfetamine Dimesylate 60 MG 1 caps ule in the morning Oral Once a day for 30 days 05/20/2024 DULoxetine HCl 30 MG 1 capsule Oral Once a day for 90 days Treatment Notes Assessment Notes Generalized anxiety disorder stable Attention-deficit hyperactiv ity disorder, combined type lisedexamfetamine 60mg daily BOXED WARNINGCaution with history of drug dependence or alcoholism. Marked tolerance and psychological dependence may result from chronic abusive use. George psychotic episodes may occur, especially with parenteral abuse. Careful supervision required for withdrawal from abusive use to avoid severe depression. Withdrawal following chronic use may unmask symptoms of underlying disorder that may require follow-up Binge eating disorder, mild lisdexamfeta mine 60mg daily Next Appt Details Follow Up: 4 Months, Reason: f/u adhd, anxiety Provider Name:Anoop rodriges, 09/22/2024 01:00:00 PM, [address], [facility] [address], [place], [address], Progress Notes * ROSEMARIE SALDAÑA RDOB:[birth year] (43 yo F)Acc No.[id number]:05/26/2024 Patient: ROSEMARIE SULTANA Natalee Provider: KULWANT SHEETS :1980 A ge:43 Y S ex:Female Date:05/26/2024 Address:[address] [place], [place] [id number] Pcp:Chano Bone DO Subjective: * Chief Complaints: * C hecked inDepression screening negativeFollow-upUDT VisitUDT done * HPI: D epression Screening: the note is transcribed using speech recognition software. It is a reflection of a visit with the patient. It might have some inaccuracy, including medication names and transcribing errors, though efforts have been made to correct them. Chief complaint- Follow-up visit, no significant changes. The patient reports no significant changes in her psychiatric symptoms. She denies experiencing depression or anxiety. Her current medications, including Vyvanse 60mg and duloxetine 30mg, are reported to be working well without any side effects. The patient mentions having her IUD removed at the end of March without replacement, but reports no mood changes related to this. She denies any other medical changes. 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 She is and is planning a vacation to [place]. KATHY-7 (2018 Edition) F eeling nervous, anxious, or on edge N ot at all N ot being able to stop or control worrying?Not at all W orrying too much about different things N ot at all T rouble relaxing N ot at all B eing so restless that it is hard to sit still N ot at all B ecoming easily annoyed or irritable N ot at all F eeling afraid as if something awful might happen N ot at all T otal KATHY-7 Score 0 I f you checked any problems, how difficult have they made it for you to do your work, take care of things at home, or get along with other people? N ot difficult at all I nterpretation of Total ( 0 to 4) No Anxiety [place]-Suicide Severity Rating Scale: Suicide Risk (CSRS-screener) i n the past one month Have you wished you were or wished you could go to sleep and not wake up? N o i n the past one month Have you actually had any thoughts of killing yourself? N o H ave you ever done anything, started to do anything, or prepared to do anything to end your life? N o D epression screening: PHQ-9 L ittle interest or pleasure in doing things?Not at all F eeling down, depressed, or hopeless N ot at all T rouble falling or staying asleep, or sleeping too much N ot at all F eeling tired or having little energy N ot at all P oor appetite or overeating N ot at all F eeling bad about yourself or that you are a failure, or have let yourself or your family down N ot at all T rouble concentrating on things, such as reading the newspaper or watching television N ot at all M oving or speaking so slowly that other people could have noticed; or the opposite, being so fidgety or restless that you have been moving around a lot more than usual N ot at all T houghts that you would be better off or of hurting yourself in some way N ot at all T otal Score 0 Intervention D epression Screening Findings N egative S uicide Risk Assessment Performed _ H istory of Presenting Problem: Medication Side Effects n o. Anxiety s table. Depression s table. Sleep disturbance h x binge eating d/o, stable. ADHD O nset: years ago. Pt was seen today and Urine drug screen was done. * ROS: P erformance Met: N ormal blood pressure reading documented, follow-up not required ( G8783). * Medical History: * Surgical History: * Hospitalization/Major Diagno stic Procedure: * Family History: M aternal Aunt: Depressive disorder . M other: Anxiety disorder , Alcohol abuse . M aternal Grandmother: Depressive disorder . S ister: Depressive disorder . * Social History: T obacco Use: T obacco Control (Standard) T obacco use: N onsmoker M igrated Social History: M igrated Social History: Alcohol Intake: Occasional 02/12/2020,Tobacco Years: Never smoker 01/24/2018,Smoking Status: 0 05/13/2023. M iscellaneous: A dvance Care Planning A re you your own decision-maker Y es D o you have Power of Metrology Technician for Health or Medical? N o * Medications: T akingDULoxetine HCl 30 MG Capsule Delayed Release Particles 1 capsule Oral Once a day , Notes to Pharmacist: F325,UnavailableLisdexamfetamine Dimesylate 60 MG Capsule 1 capsule in the morning Oral Once a day Taking DULoxetine HCl 30 MG Capsule Delayed Release Particles 1 capsule Oral Once a day , Notes to Pharmacist: F325,UnavailableTaking Lisdexamfetamine Dimesylate 60 MG Capsule 1 capsule in the morning Oral Once a day Not-TakingLisdexamfetamine Dimesylate 50 MG Capsule Oral Vyvanse 50 MG Capsule Oral Vyvanse 50 MG Capsule TAKE 1 CAPSULE BY MOUTH ONCE DAILY IN THE MORNING Oral Zepbound 5 MG/0.5ML Solution Auto-injector INJECT 5MG SUBCUTANEOUSLY ONCE A WEEK, EVERY 7 DAYS Subcutaneous DULoxetine HCl 60 MG Capsule Delayed Release Particles TAKE 1 CAPSULE BY MOUTH ONCE DAILY Oral prednisoLONE Acetate 1 % Suspension Ophthalmic lamoTRIgine 100 MG Tablet TAKE 1 TABLET BY MOUTH TWICE DAILY Oral Polymyxin B-Trimethoprim 29010-1.1 UNIT/ML Solution Ophthalmic Azelastine HCl 0.05 % Solution INSTILL 1 DROP INTO EACH EYE TWICE DAILY FOR 7 DAYS Ophthalmic Azelastine HCl 0.05 % Solution Ophthalmic DULoxetine HCl 60 MG Capsule Delayed Release Particles Oral lamoTRIgine 100 MG Tablet Oral Mounjaro 5 MG/0.5ML Solution Pen-injector INJECT 5MG SUBCUTANEOUSLY ONCE A WEEK, EVERY 7 DAYS Subcutaneous Vyvanse 70 MG Capsule Oral Vyvanse 70 MG Capsule TAKE 1 CAPSULE BY MOUTH ONCE DAILY IN THE MORNING FOR 30 DAYS Oral Medication List reviewed and reconciled with the patientNot-Taking Lisdexamfetamine Dimesylate 50 MG Capsule Oral Not- Taking Vyvanse 50 MG Capsule Oral Not-Taking Vyvanse 50 MG Capsule TAKE 1 CAPSULE BY MOUTH ONCE DAILY IN THE MORNING Oral Not-Taking Zepbound 5 MG/0.5ML Solution Auto- injector INJECT 5MG SUBCUTANEOUSLY ONCE A WEEK, EVERY 7 DAYS Subcutaneous Not-Taking DULoxetine HCl 60 MG Capsule Delayed Release Particles TAKE 1 CAPSULE BY MOUTH ONCE DAILY Oral Not-Taking prednisoLONE Acetate 1 % Suspension Ophthalmic Not-Taking lamoTRIgine 100 MG Tablet TAKE 1 TABLET BY MOUTH TWICE DAILY Oral Not-Taking Polymyxin B-Trimethoprim 85431-2.1 UNIT/ML Solution Ophthalmic Not-Taking Azelastine HCl 0.05 % Solution INSTILL 1 DROP INTO EACH EYE TWICE DAILY FOR 7 DAYS Ophthalmic Not-Taking Azelastine HCl 0.05 % Solution Ophthalmic Not-Taking DULoxetine HCl 60 MG Capsule Delayed Release Particles Oral Not-Taking lamoTRIgine 100 MG Tablet Oral Not-Taking Mounjaro 5 MG/0.5ML Solution Pen-injector INJECT 5MG SUBCUTANEOUSLY ONCE A WEEK, EVERY 7 DAYS Subcutaneous Not-Taking Vyvanse 70 MG Capsule Oral Not-Taking Vyvanse 70 MG Capsule TAKE 1 CAPSULE BY MOUTH ONCE DAILY IN THE MORNING FOR 30 DAYS Oral Medication List reviewed and reconciled with the patient * Allergies: C dianaeinerika: Allergy - Onset Date 06/11/2023no[Allergies Verified] Objective: * Vitals: B P:105/69mm Hg, HR:79/min, Wt:143lbs, Wt-k.86 kg, Ht: 64.00 in, Ht-cm: 162.56 cm, BMI:24.54Index, Body Surface Area: 1.71. * Examination: G eneral Examination: - Mental Status Examination: - Patient appears well-groomed and in good spirits. - No reported symptoms of depression or anxiety. - Denies any recent mood changes following hormonal changes due to IUD removal. - Physical Examination: - General: Patient appears healthy and well-groomed. - Gynecological: Recent removal of IUD at the end of March, no replacement inserted. Assessment: * Assessment: 1. M young depressive disorder, recurrent, mild - F33.0 (Primary) 2 . G eneralized anxiety disorder - F41.1 3 . A ttention-deficit hyperactivity disorder, combined type - F90.2 4 . B joel eating disorder, mild - F50.810 Plan: * Treatment: 2. G eneralized anxiety disorder Notes: stable 3. A ttention-deficit hyperactivity disorder, combined type Continue Lisdexamfetamine Dimesylate Capsule, 60 MG, 1 capsule in the morning, Oral, Once a day, 30 days, 30 Capsule, Refills 0. Notes: lisedexamfetamine 60mg daily BOXED WARNINGCaution with history of drug dependence or alcoholism. Marked tolerance and psychological dependence may result from chronic abusive use. George psychotic episodes may occur, especially with parenteral abuse. Careful supervision required for withdrawal from abusive use to avoid severe depression. Withdrawal following chronic use may unmask symptoms of underlying disorder that may require follow-up 4. B joel eating disorder, mild Notes: lisdexamfetamine 60mg daily 5. O thers Clinical Notes: 1. ADHD: - Patient reports Vyvanse 60 mg is working well with no side effects. Plan: - Continue Vyvanse 60 mg daily. 2. Depression: - Patient reports duloxetine 30 mg is working well with no side effects. Plan: - Continue duloxetine 30 mg daily. 3. Anxiety: - Patient denies any anxiety symptoms. Plan: - No intervention needed at this time. 4. Hormonal changes: - Patient had IUD removed in March and reports no mood changes or issues. Plan: - Monitor for any mood changes or symptoms related to hormonal fluctuations. Follow-up: - Schedule a follow-up appointment in 4 months to reassess the patient's progress and medication effectiveness. * Labs: * L ab: UDT (Collection Date & Time - 05/26/2024) Value Reference Range T HC N 0 - 50 ng/ml * C ocaine N 0 - 300 ng/ml * A mphetamine P 0 - 1000 ng/ml * B uprenorphine (BUP) N 0 - 10 ng/ml * S ecobarbital (Bar) N 0 - 300 ng/ml * O xazepam (BZO) N 0 - 300 ng/ml * 2 -ethylidene-1,1-sbajypee-7,3-diphenylpyrrolidine (EDDP) N 0 - 300 ng/ml * M ethamphetamine (MET) N 0 - 1000 ng/ml * M ethylenedioxymethamphetamine (MDMA) N 0 - 500 ng/ml * M orphine (MOP 300/XAE4622) N 0 - 300 ng/ml * M ethadone (MTD) N 0 - 300 ng/ml * P hencyclidine (PCP) N 0 - 25 ng/ml * N ortriptyline (TCA) N 0 - 1000 ng/ml * O xycodone N 0 - 300 ng/ml * x N 0 - 300 ng/ml * Procedure Codes: 9 6127 BEHAV ASSMT W/SCORE & DOCD/STAND [id number] NORMAL BP READING DOC F/U NOT [id number] DRUG TST PRSMV READ INSTRMNT ASSTD DIR OPT [id number] MOST RECENT SYSTOLIC BP < 140MM [id number] MOST RECENT DIASTOLIC BP < 90MM HG * Follow Up: 4 Months (Reason: f/u adhd, anxiety) * Billing Information: * Visit Code: 02326 OFFICE OUTPATIENT VISIT 25 MINUTES DETAILED HISTORY AND EXAM/MODERATE MEDICAL DECISION MAKING. * Procedure Codes: 73666 BEHAV ASSMT W/SCORE & DOCD/STAND INSTRUMENT. G8783 NORMAL BP READING DOC F/U NOT RQR. 05877 DRUG TST PRSMV READ INSTRMNT ASSTD DIR OPT OBS. G8752 MOST RECENT SYSTOLIC BP < 140MM HG. G8754 MOST RECENT DIASTOLIC BP < 90MM HG. * Sign off status: Completed true * Provider: KULWANT SHEETS Date: 0 05/26/2024 Generated for Trice de idos/Gomez/Sincere on: 0 2024 03:03 PM CDT History and Physical Notes * HPI (History of Present Illness) Category Sub-Category Detail Notes Category Not es History of Presenting Problem Anxiety stable Pt was seen today an d Urine drug screen was done Depression stable Sleep disturbance hx binge eating d/o, stable ADHD Onset: years ago Medication Side Effects no Depression screening PHQ-9 Little inte rest or pleasure in doing things: Not at all Feeling down, depressed, or hopeless: No t at all Trouble falling or staying asleep, or sl eeping too much: Not at all Feeling tired or having little energy: N ot at all Poor appetite or overeating: Not at all Feeling bad about yourself o r that you are a failure, or have let yourself or your family down: Not at all Trouble concentrating on thi ngs, such as reading the newspaper or watching television: Not at all Moving or speaking so slowly that other people could have noticed; or the opposite, being so fidgety or restless that you have been moving around a lot more than usual: Not at all Thoughts that you would be b chula off or of hurting yourself in some way: Not at all Total Score: 0 Intervention Depression Screening Findings: N egative Suicide Risk Assessment Performed: ____ Depression Screening KATHY-7 (2018 Edition) Feelin g nervous, anxious, or on edge: Not at all Not being able to stop or control worryi ng: Not at all Worrying too much about different things : Not at all Trouble relaxing: Not at all Being so restless that it is hard to sit still: Not at all Becoming easily annoyed or irritable: No t at all Feeling afraid as if something awful katey ht happen: Not at all Total KATHY-7 Score: 0 If you checked any problems, how difficult have they made it for you to do your work, take care of things at home, or get along with other people?: Not difficult at all Interpretation of Total: (0 to 4) No Anx iety [place]-Suicide Severity Rating Scale Suicide Risk (CSRS-screener) in the past one month Have you wished you were or wished you could go to sleep and not wake up?: No in the past one month Have y ou actually had any thoughts of killing yourself?: No Have you ever done anything, started to do anything, or prepared to do anything to end your life?: No Examination Category Sub-Category Detail Notes Category Not es General Examination - Mental Status Examination: - Patient appears well-groomed and in good spirits. - No reported symptoms of depression or anxiety. - Denies any recent mood changes following hormonal changes due to IUD removal. - Physical Examination: - General: Patient appears healthy and well-groomed. - Gynecological: Recent removal of IUD at the end of March, no replacement inserted.
--- OUTSIDE RECORDS SUMMARY | 2024-07-02 15:03 | XMS_ITS ---
Author Organization [facility] [employer] [facility] Address [address] [facility] [address] [place] [address] Care Team Providers Care Residential Manager Name Role Phone Chano Bone DO Primary Care Provider Anoop Oconnell Unavailable [phone] REASON FOR VISIT New Refill Request Medications Medication SIG (Take, Route, Frequency, Duration) Notes Start Date End Date Status Lisdexamfetamine Dimesylate 60 MG 1 capsule in the morning Oral Once a day for 30 days 06/18/2024 Active Social History Sex Assigned At : Social History Observation Description Sex Assigned At Female Encounters Encounter Location Date Provider Diagnosis [facility] [employer] [place] [id number] [facility] [address] [facility] [address] [place] [address] 06/18/2024 Anoop Heard Attention-deficit hyperactivity disorder, combined type F90.2 Assessments Encounter Date Diagnosis (ICD Code) Assessment Notes Treatment Notes Treatment Clinical Notes Section Notes 06/18/2024 Attention-deficit hyperactivity disorder, combined type (ICD-10 - F90.2) Plan Of Treatment Medication Medication Name Sig Start Date Stop Date Notes Lisdexamfetamine Dimesylate 60 MG 1 caps ule in the morning Oral Once a day for 30 days 06/18/2024 Next Appt Details Provider Name:Anoop rodriges, 09/22/2024 01:00:00 PM, [address], [address], [place], [address], Progress Notes * ROSEMARIE SALDAÑA RDOB:[birth year] (43 yo F)Acc No.[id number]:06/18/2024 Patient: ROSEMARIE SULTANA :1980 A ge:43 Y S ex:Female Address:[address] [place], [address] * Refills Refill Lisdexamfetamine Dimesylate Capsule, 60 MG, Oral, 30 Capsule, 1 capsule in the morning, Once a day, 30 days, Refills=0 * true * Date: Generated for Trice de dios/Gomez/Dorindaitting on: 0 2024 01:24 PM CDT
--- OUTSIDE RECORDS SUMMARY | 2024-07-02 15:03 | XMS_ITS | Encounter Summary ---
Author Organization [facility] Address [facility] [place] [address] Care Team Providers Care Supervisor Instrument Repair Name Role Phone Chano Bone DO Primary Care Provider + Encounter Details Date Type Department Care Team (Late Contact Info) Description 02/07/[address] [facility] Family [facility] Internal Medicine [facility] [address] [place] [address] Chano Bone DO [address] [place], [place] [id number] Blood Test Social History Tobacco Use Types Packs/Day Years [...] on file Legal Sex Female 10:48 AM [employer] Gender Identity Female 06/27/2021 3:55 PM CDT [...] documented as of this encounter Care Teams Supervisor Instrument Repair Relationship Specialty Start Date End Date Chano Bone DO [address] [place] [id number] PCP - General FAMILY PRACTICE 06/27/21 documented as of this encounter
--- OUTSIDE RECORDS SUMMARY | 2024-07-02 15:03 | XMS_ITS | Clinical Summary ---
Author Organization [address] [facility] [place] Address [address] [place] [address] Care Team Providers Care Privacy Director Name Role Phone Unknown, Notinfile Primary Care Provider Unavail able Allergies Active Allergy Reactions Criticality Noted Date Comments Codeine Anaphylaxis High 01/29/2018 Medications prednisoLONE acetate (PRED FORTE) 1 % ophthalmic suspension 0 01/17/2018 Active VYVANSE 50 mg capsule 0 01/24/2018 Active clonazePAM (KlonoPIN) 0.5 mg tablet 3 01/27/[address] (CYMBALTA) 60 mg capsule Take 60 mg by mouth daily. Active Active Problems No known active problems Surgical History Surgery Date Site/Laterality Comments SECTION CORNEAL TRANSPLANT Left Medical History Medical History Date Comments Depression Family History Medical History Relation Name Comments Alcohol abuse Other Cancer Other Mental illness Other Relation Name Status Comments Other Social History Tobacco Use Types Packs/Day Years Used Date Smoking Tobacco: Never Smokeless Tobacco: Never Personal Safety Answer Date Recorded Getting School Help Needed Not on file 06/20 Comments Unknown Sex and Gender Information Value Date Recorded Sex Assigned at Not on file 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 Gender Identity Not on file Sexual Orientation Not on file Obstetrics History Last Filed Vital Signs Vital Sign Reading Time Taken Comments Blood Pressure 98/64 01/29/2018 2:59 PM CDT Pulse 96 01/29/2018 2:59 PM CDT Temperature - - Respiratory Rate - - Oxygen Saturation - - Inhaled Oxygen Concentration - - Weight 71 kg (156 lb 9.6 oz) 01/29/2018 2:59 PM CDT Height 162.6 cm (5' 4 ) 01/29/2018 2:59 PM CDT Body Mass Index 26.88 01/29/2018 2:59 PM CDT Plan of Treatment Not on file Insurance [employer] OPEN ACCESS Care Teams Privacy Director Relationship Specialty Start Date End Date Unknown, Notinfile PCP - General 01/28/18
--- OUTSIDE RECORDS SUMMARY | 2024-07-02 15:03 | XMS_ITS ---
Author Organization [facility] [employer] [facility] Address [address] [facility] [address] [facility] [address] [place] [address] Care Team Providers Care Regional Extension Service Specialist Name Role Phone Chano Bone DO Primary Care Provider Anoop Oconnell Unavailable [phone] REASON FOR VISIT New Refill Request Medications Medication SIG (Take, Route, Frequency, Duration) Notes Start Date End Date Status Lisdexamfetamine Dimesylate 60 MG 1 capsule in the morning Oral Once a day for 30 days 05/20/2024 Active Social History Sex Assigned At : Social History Observation Description Sex Assigned At Female Encounters Encounter Location Date Provider Diagnosis [address] [address] 05/20/2024 Anoop Heard Plan Of Treatment Medication Medication Name Sig Start Date Stop Date Notes Lisdexamfetamine Dimesylate 60 MG 1 caps ule in the morning Oral Once a day for 30 days 05/20/2024 Next Appt Details Provider Name:Anoop rodriges, 09/22/2024 01:00:00 PM, [address] [facility] [address], [facility] [address], [place], [address], Progress Notes * ROSEMARIE SALDAÑA RDOB:[birth year] (43 yo F)Acc No.[id number]:05/20/2024 Patient: ROSEMARIE SULTANA :1980 A ge:43 Y S ex:Female Address:[address] [place], [address] * Refills Refill Lisdexamfetamine Dimesylate Capsule, 60 MG, Oral, 30, 1 capsule in the morning, Once a day, 30 days, Refills=0 * true * Date: Generated for Trice de dios/Gomez/Dorindaitting on: 0 2024 03:03 PM CDT
--- OUTSIDE RECORDS SUMMARY | 2024-07-02 15:03 | XMS_ITS | Referral Summary ---
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
--- OUTSIDE RECORDS SUMMARY | 2024-07-02 15:03 | XMS_ITS | Encounter Summary ---
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
--- OUTSIDE RECORDS SUMMARY | 2024-07-02 15:03 | XMS_ITS | Clinical Summary ---
[facility] Address [facility] [place] [address] Care Team Providers Care Job Placement Officer Name Role Phone Unavailable Primary Care Provider Unavailabl e Allergies Active Allergy Reactions Criticality Noted Date Comments Codeine Anaphylaxis High 2024 Medications lisdexamfetamin e (VYVANSE) 60 mg capsule Take 60 mg by mouth daily in the morning. 06/18/2024 Active DULoxetine (CYMBALTA) 30 mg Capsule, Delayed Release(E.C.) Take 1 Capsule by mouth daily. 04/15/2024 Active Active Problems No known active problems Encounters Date Type Department Care Team Description 2024 1:30 PM CDT Office Visit [facility] Oncology and Hematology - [place] [address] [address] Darshan Ventura MD Leukopenia, unspecified type (Primary Dx) from Last 3 Months Family History Medical History Relation Name Comments No Known Problems Brother 1 No Known Problems Brother 2 No Known Problems Brother 3 Diabetes Father Lung Cancer Father Esophageal Cancer Mother Tongue Cancer Mother No Known Problems Sister Relation Name Status Comments Brother 1 Alive Brother 2 Alive Brother 3 Alive Father Mother Sister Alive Social History Tobacco Use Types Packs/Day Years Used Date Smoking Tobacco: Never Smokeless Tobacco: Never Alcohol Use Standard Drinks/Week Comments Yes 0 (1 standard drink = 0.6 oz pur e alcohol) Occasionally Comments Unknown Sex and Gender Information Value Date Recorded Sex Assigned at Not on file Legal Sex Female 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 Gender Identity Not on file Sexual Orientation [...] Mass Index 24.79 2024 1:30 PM CDT Plan of Treatment Upcoming Encounters Date Type Department Care Team (Late st Contact Info) Description 07/21/2024 4:15 PM CDT Telephone Check Up [facility] Oncology and Hematology [facility] [place] [address] [facility] [address] [place] [address] Darshan Ventura MD [address] [facility] [address] [place] [address] Health Maintenance Due Date Last Done Comments DTAP/TDAP/TD VACCINES (1 - Tdap) 1997 HEPATITIS B VACCINES (1 of 3 - 19+ 3-dose series) 1997 HPV/Cotest (21-29) 07/03/1999 CERVICAL CANCER SCREENING 2008 HPV/Cotest (30-65) 2008 PAP SMEAR 2008 BREAST CANCER SCREENING 2018 COLORECTAL SCREENING 07/03/2023 Colorectal Cancer Screening 07/03/2023 FIT-DNA Q 3 years 07/03/2023 FIT/FOBT Q 1 year 07/03/2023 Flex Sig/CT Colonography Q 5 years 07/03/2023 INFLUENZA VACCINE (#1) 2023 Preventative Visit- Commercial 04/08/2024 HPV VACCINES Aged Out No longer eligi ble based on patient's age to complete this topic Insurance [facility] CHOICE [id number] Member Subscriber Plan / Payer (Ef fective 2024-Present) Name:SaldañaJanet Relation to Subscriber:Self Name:Saldaña Janet Payer ID:[id number] (NAIC) Type:O Address: [address] [facility]
--- OUTSIDE RECORDS SUMMARY | 2024-07-02 15:04 | XMS_ITS | Encounter Summary ---
Author Organization [facility] Address [facility] [place] [address] Care Team Providers Care Dairy Machine Operator Farmworker Name Role Phone Chano Bone DO Primary Care Provider + Encounter Details Date Type Department Care Team (Late st Contact Info) Description 05/25/2022 [employer] Message Enc [facility] Medical Group Family & Internal Medicine [facility] [address] [place] [address] Chano Bone DO [address] [place], [place] [phone] Weight lose injection medication Social History Tobacco Use Types Packs/Day Years [...] on file 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
[2024-07-02 16:25] LABS: Alanine Aminotransferase 21 U/L (6-35); Albumin Level 4.7 g/dL (3.5-5.1); Alkaline Phosphatase 64 U/L (38-126); Anion Gap 9 mmol/L (4-12); Aspartate Amino Transferase 50 U/L (14-36); Bilirubin,Total 1.6 mg/dL (0.2-1.3); Blood Urea Nitrogen 15 mg/dL (7-17); Calcium 9.6 mg/dL (8.4-10.2); Carbon Dioxide 29 mmol/L (22-30); Chloride 102 mmol/L (98-107); Estimated Glomerular Filt Rate > 60; Glucose 91 mg/dL (65-110); Sodium 140 mmol/L (137-145)
== END 2024-07-02 14:08 | disposition home or self-care (01) ==
LOC: ANHLAB 14:10
PROVIDERS: PCP Student in an Organized Health Care Education/Training Program; Visit Provider Internal Medicine Hematology & Oncology
DX: D72.819 Decreased white blood cell count, unspecified (principal)
CPT/HCPCS: 36415; 80053; 85025; 86038; 86039; 88184

== ENCOUNTER 2024-07-15 10:47 | Outpatient (CLI) | payer BC, SELFPAY ==
--- NOTE | ~2024-07-15 | US_ITS ---
US abdomen complete EXAMINATION: US Abdomen Complete INDICATION: Leukopenia PROCEDURE: Realtime High Resolution abdomen ultrasound. COMPARISON: No prior studies for comparison FINDINGS: Gallbladder within normal limits. No gallstones, pericholecystic fluid, gallbladder wall t hickening or biliary dilatation. Common bile duct measures 2.4 mm. Liver echotexture within normal limits without focal mass. Pancreas within normal limits. Pancreati c tail is obscured by bowel gas. Spleen is unremarkeable. Renal echotexture is within normal limits bilaterally without hydronephrosis, contour deforming mass or renal stone. Right kidney measures 9.7 cm. Left kidney measures 10 cm. Visualized aspects of the aorta and IVC are within normal limits. Portal vein is patent. No sonograph ic Sparrow's sign indicated by the technologist. IMPRESSION: 1: Normal abdominal ultrasound. Reviewed, dictated and finalized at location A.
--- OUTSIDE RECORDS SUMMARY | 2024-07-15 12:25 | XMS_ITS | Clinical Summary ---
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 Gender Identity Female 06/27/2021 3:55 PM CDT Sexual Orientation Straight 06/27/2021 3: 55 PM CDT Occupation Industry Job Start Date Job End Date Not on file Not on file Not on file Not on file Last Filed Vital Signs Vital Sign Reading Time Taken Comments Blood Pressure 108/70 02/19/2024 9:56 AM TEACHER VOCAL Pulse 71 02/19/2024 9:56 AM TEACHER VOCAL Temperature 36.5 C (97.7 F) 02/19/2024 9:56 AM TEACHER VOCAL Respiratory Rate 16 02/19/2024 9:56 AM TEACHER VOCAL Oxygen Saturation 98% 02/19/2024 9:56 AM TEACHER VOCAL Inhaled Oxygen Concentration - - Weight 63.8 kg (140 lb 11.2 oz) 02/19/2024 9:56 AM TEACHER VOCAL Height 162.6 cm (5' 4 ) 02/19/2024 9:56 AM TEACHER VOCAL Body Mass Index 24.15 02/19/2024 9:56 AM TEACHER VOCAL Plan of Treatment Health Maintenance Due Date [...] Cancer Screening with HPV 03/17/2024 PHQ-2 (Physician [place]ta[place]) 04/08/2024 02/19/2024 COVID-19 Vaccine ( season) 2025 12/22/2021, 11/23/2021 Postponed from 12/08/2023 (Patient Refused) DTaP, Tdap and Td Vaccines (2 - Td or Tdap) 02/18/2025 07/07/2013 Postponed from 07/08/2023 (Patient Refused) Hepatitis B Vaccines (1 of 3 - 19+ 3-dose series) 02/18/2025 Postponed from 1997 (Patient/Guardian Refusal) Hepatitis C Completed 06/27/2021 HPV Vaccines Aged [...] Procedure Name Priority Date/Time Associated Diagnosis Comments PATHOLOGY GENERIC (SCAN ORDER) 07/03/2024 OUTSIDE LAB (SCAN ORDER) 2024 OUTSIDE LAB (SCAN ORDER) 2024 OUTSIDE LAB (SCAN ORDER) 2024 MAMMOGRAM GENERIC (SCAN ORDER) 01/16/2023 HEPATITIS C ANTIBODY Routine 06/27/2021 10:23 AM CDT Encounter for preventative adult health care examination Need for hepatitis C screening test OUTSIDE CYTOPATH CERV/VAG INTERPRET (PAP) (SCAN ORDER) 11/27/2019 OUTSIDE CYTOPATH CERV/VAG INTERPRET (PAP) 03/17/2019 from Last 3 Months or Most Recently Relevant to Health Maintenance Results * PATHOLOGY GENERIC (SCAN ORDER) (07/03/2024) 07/03/2024 [facility] Scanned SCANNING Final Resu lt * OUTSIDE LAB (SCAN ORDER) (2024) Only the most recent of3 resultswithin the time period is included. 2024 [facility] Scanned SCANNING Final Resu lt * MAMMOGRAM GENERIC (01/16/2023) Anatomical Region Laterality Modality Other 01/16/2023 [facility] Scanned SCANNING Final Resu lt * HEPATITIS C ANTIBODY (06/27/2021 10:23 AM CDT) HEPATITIS C AB NON-REACTI VE NON-REACT YO 06/27/2021 7:25 PM CDT [facility] Comment: ANTIBODIES TO HCV NOT DETECTED. DOES NOT EXCLUDE THE POSSIBILITY OF EXPOSURE TO HCV. 06/27/2021 10:2 3 AM CDT us Chano Bone DO LABORATORY Final Re sult [facility] [address] [place] [address], [id number] * OUTSIDE CYTOPATH CERV/VAG INTERPRET (PAP) (11/27/2019) 11/27/2019 Narrative 11/27/2019 Ordered by an unspecified provider. us Documents Scanned SCANNING Final Result * OUTSIDE CYTOPATH VAG/CERV PAP WITH HPV (03/17/2019) 03/17/2019 Narrative 03/17/2019 Ordered by an unspecified provider. us Documents Scanned SCANNING Final Result from Last 3 Months or Most Recently Relevant to Health Maintenance Insurance [employer] Care Teams Brace End Mainspring Former Relationship Specialty Start Date End Date Chano Bone DO [address] [place] [id number] PCP - General FAMILY PRACTICE 06/27/21
--- OUTSIDE RECORDS SUMMARY | 2024-07-15 12:25 | XMS_ITS | Clinical Summary ---
Author Organization [facility]avez [facility] Address [address] [address] Care Team Providers Care Sanitation Worker Cleaning Machinery Name Role Phone Unavailable Primary Care Provider [...] Encounters Date Type Department Care Team Description 07/07/2024 External Device Data STL ABSTRACTION Provider, Abstract 07/07/2024 External Device Data STL ABSTRACTION Provider, Abstract 07/07/2024 External Device Data STL ABSTRACTION Provider, Abstract 07/07/2024 Orders Only [facility] Oncology and Hematology - [place] [address] [place] [address] Darshan Ventura MD 07/07/2024 Abstract [facility] Oncology and Hematology - [place] [address] [place] [address] Darshan Ventura MD 07/06/2024 Orders Only [facility] Oncology and Hematology - [place] [address] [place] [address] Darshan Ventura MD 07/03/2024 Orders Only [facility] Oncology and Hematology - [place] [address] [place] [address] Darshan Ventura MD 2024 1:30 PM CDT Office Visit [facility] Oncology and Hematology - [place] [address] [place] [address] Darshan Ventura MD Leukopenia, unspecified type (Primary Dx) 2024 Abstract [facility] Oncology and Hematology - [place] [address] [place] [address] Darshan Ventura MD 2024 Orders Only [facility] Oncology and Hematology - [place] [address] [place] [address] Darshan Ventura MD from Last 3 Months Family History Medical [...] on file 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 Gender Identity Not on file Sexual Orientation [...] 07/21/2024 4:15 PM CDT Telephone Check Up [facility] Oncology and Hematology [facility] [address] [facility] [address] [place] [address] Darshan Ventura MD [address] [facility] [address] [place] [address] Health Maintenance Due Date Last [...] Procedure Name Priority Date/Time Associated Diagnosis Comments CHG NUCLEAR ANTIGEN ANTIBODY Routine 2024 4:22 PM CDT CBC MIXED CELL DIFFERENTIAL Routine 2024 3:54 PM CDT COMPREHENSIVE METABOLIC PANEL Routine 2024 1:02 PM CDT PATHOLOGY Routine 2024 12:05 PM CDT from Last 3 Months Results * CHG NUCLEAR ANTIGEN ANTIBODY (2024 4:22 PM CDT) Darshan Ventura MD CHG - LABORATORY Final Result * CBC MIXED CELL DIFFERENTIAL (2024 3:54 PM CDT) Blood Darshan Ventura MD HEMATOLOGY ORDERABLES Final Res ult * COMPREHENSIVE METABOLIC PANEL (2024 1:02 PM CDT) Blood Darshan Ventura MD CHEMISTRY ORDERABLES Final Resu lt * PATHOLOGY (2024 12:05 PM CDT) Tissue Darshan Ventura MD PATHOLOGY/CYTOLOGY ORDERABLES F inal Result from Last 3 Months Insurance Member Subscriber Plan / Payer (Ef fective 2024-Present) Name:Janet Saldaña Relation to Subscriber:Self Name:Janet Saldaña Payer ID:[id number] (NAIC) Type:O Address: [address] [facility]
--- OUTSIDE RECORDS SUMMARY | 2024-07-15 12:25 | XMS_ITS | Encounter Summary ---
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
--- OUTSIDE RECORDS SUMMARY | 2024-07-15 12:25 | XMS_ITS | Encounter Summary ---
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
--- OUTSIDE RECORDS SUMMARY | 2024-07-15 12:25 | XMS_ITS | Clinical Summary ---
Author Organization [address] [facility] [place] Address [address] [place] [address] Care Team Providers Care Plant Operations Coordinator Name Role Phone Unknown, Notinfile Primary Care [...] on file Legal Sex Female 12:00 AM SCRAP CHARGER Gender Identity Not on file Sexual Orientation [...] Plan of Treatment Not on file Insurance [employer] OPEN ACCESS Care Teams Plant Operations Coordinator Relationship Specialty Start Date End Date Unknown, Notinfile PCP - General 01/28/18
--- OUTSIDE RECORDS SUMMARY | 2024-07-15 12:25 | XMS_ITS | Encounter Summary ---
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
--- OUTSIDE RECORDS SUMMARY | 2024-07-15 12:25 | XMS_ITS | Referral Summary ---
Author Organization [address] [facility] [place] Address [address] [place] [address] Care Team Providers Care Tune Up Mechanic Name Role Phone Unknown, Notinfile Primary Care [...] on file Legal Sex Female 12:00 AM LIME SLUDGE KILN OPERATOR Gender Identity Not on file Sexual Orientation [...] Plan of Treatment Not on file Insurance [employer] OPEN ACCESS Care Teams Tune Up Mechanic Relationship Specialty Start Date End Date Unknown, Notinfile PCP - General 01/28/18
--- OUTSIDE RECORDS SUMMARY | 2024-07-15 12:26 | XMS_ITS | Encounter Summary ---
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
== END 2024-07-15 10:48 | disposition home or self-care (01) ==
PROVIDERS: PCP Student in an Organized Health Care Education/Training Program; Visit Provider Internal Medicine Hematology & Oncology
DX: D72.819 Decreased white blood cell count, unspecified (principal)
CPT/HCPCS: 76700

== ENCOUNTER 2024-07-29 11:28 | Emergency (ER) | payer BC, SELFPAY ==
[2024-07-29 11:40] VITALS: BP 105/71; PULSE 82; RESP 17; TEMP 36.6; O2SAT 100
--- NOTE | 2024-07-29 11:50 | ED.GENADULT ---
[facility] - General Adult General Chief complaint: Skin/Abscess/Foreign Body Stated complaint: rash on hands and face Time Seen by Provider: 07/29/24 12:10 Source: patient Mode of arrival: ambulatory Limitations: no limitations History of Present Illness [facility] narrative: Here for rash on hands and face. She reports a 1 month history of rash to the backs of her hands that is itchy, red and raised. She reports taking oral Benadryl which helps with the itch, However it makes her tired. She reports trying topical triamcinolone cream which was an old prescription. She reports skin on the backs of her hands feel thickened. She reports switching the type of gloves that she uses in her work after onset of rash to a latex free glove. 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 She has not tried any other oral antihistamines for this concern. She denies any new products or new exposures. denies new clothing detergent, personal hygiene products, or lotion. denies any recent illness. Denies any known trigger of rash. Related Data Home Medications ?Medication ?Instructions ?Recorded ?Confirmed ?Last Taken ?Type lisdexamfetamine 50 mg capsule 50 mg PO DAILY 10/18/20 07/29/24 Unknown History (Gurvinder) duloxetine 30 mg capsule,delayed 30 mg PO DAILY 04/02/24 07/29/24 04/05/24 History release Allergies Allergy/AdvReac Type Severity Reaction Status Date / Time codeine Allergy Severe Anaphylaxis Verified 07/29/24 11:39 Review of Systems Review of Systems: CONSTITUTIONAL: Denies fever, chills, or sweats. EYES: Denies visual changes, redness, or discharge. ENT: Denies rhinorrhea, congestion, sore throat, or otalgia. CARDIOVASCULAR: Denies chest pain, palpitations, or edema. RESPIRATORY: Denies cough or dyspnea. GASTROINTESTINAL: Denies abdominal pain, nausea, vomiting, or diarrhea. GENITOURINARY: Denies dysuria or hematuria. SKIN: Reports rash on bilateral backs of hands. MUSCULOSKELETAL: Denies back pain, joint pain, or myalgia. NEUROLOGIC: Denies headache, numbness, or weakness. PSYCHIATRIC: Denies anxiety or depression. All other systems reviewed are negative, except as documented in HPI. [facility] Past Medical History Medical History (Updated 07/29/24 @ 12:24 by Meli Marlow APRN) Depression with anxiety Surgical History Surgical History (Updated 04/06/24 @ 07:35 by Marleen Valdez MD) History of loop electrical excision procedure (LEEP) History of H/O eye surgery Left corneal replacement Family History Family History Father Family history of lung cancer Mother Family history of malignant neoplasm of esophagus Social History Social History Smoking status: Former smoker Alcohol intake: never Alcohol use details: SOCIALLY Living arrangements: with family Gender identity (if verbalized by the patient): Female Comments At time of signature, I have reviewed and agree with nursing past medical, surgical, social and family history unless otherwise noted. Please see nursing chart for further information. There is no relevant family history pertinent to the presenting complaint. Exam Narrative: GENERAL: This is a well-nourished, well-developed patient, in no apparent distress. HEAD: normocephalic, atraumatic. EYES: Sclera clear/white. EARS: External ears normal. NOSE: External nose normal with no obvious nasal discharge THROAT: Trachea midline CARDIOVASCULAR: Regular rate and rhythm without murmurs, gallops, or rubs. RESPIRATORY: Clear to auscultation. Breath sounds equal bilaterally. No wheezes, rales, or rhonchi. SKIN: skin to bilateral dorsal hands with erythema, lichenification, patches of redness and pink rash with excoriation. Rash is scaly, dry. Rash is patchy, limited to bilateral hands. NEURO: awake, alert, and oriented to person, place and time. There were no obvious focal neurologic abnormalities. EXTREMITIES: No joint tenderness, effusion, or edema noted. Course Course Level of Care: Express Care Visit Vital Signs Vital signs: Vital Signs Temperature 36.6 C 07/29/24 11:40 Pulse Rate 82 07/29/24 11:40 Respiratory Rate 17 07/29/24 11:40 Blood Pressure 105/71 07/29/24 11:40 Pulse Oximetry 100 07/29/24 11:40 Oxygen Delivery Room Air 07/29/24 11:40 Temperature 36.6 C 07/29/24 11:40 Pulse Rate 82 07/29/24 11:40 Respiratory Rate 17 07/29/24 11:40 Blood Pressure 105/71 07/29/24 11:40 Pulse Oximetry 100 07/29/24 11:40 Oxygen Delivery Room Air 07/29/24 11:40 reviewed Medical Decision Making MDM Narrative Medical decision making narrative: Patient is aware of diagnosis, understands and agrees to treatment plan. Anticipatory guidance was given. She will start a daily antihistamine such as Zyrtec, May, or Claritin. Will use moderate potency topical steroid for rash. Used shared decision making to discuss moderate to high potency topical steroid options, and decided to use triamcinolone as she has tolerated this well in the past. she will continue to analyze her routine and ensure that all products used on hands are plain, and she is using only sensitive skin/ fragrance free items. Discussed and will send referral to Dermatology. Discussed physical exam findings with patient and reviewed prescriptions. Patient agrees to follow-up as directed and is aware of reasons to seek care at the emergency department. Discharge instructions were reviewed with the patient, as well as provided in writing per nursing staff. All questions have been answered, and the patient denies any further questions related to discharge or discharge plan. Vital Signs Vital Signs: Vital Signs Temperature 36.6 C 07/29/24 11:40 Pulse Rate 82 07/29/24 11:40 Respiratory Rate 17 07/29/24 11:40 Blood Pressure 105/71 07/29/24 11:40 Pulse Oximetry 100 07/29/24 11:40 Oxygen Delivery Room Air 07/29/24 11:40 Temperature 36.6 C 07/29/24 11:40 Pulse Rate 82 07/29/24 11:40 Respiratory Rate 17 07/29/24 11:40 Blood Pressure 105/71 07/29/24 11:40 Pulse Oximetry 100 07/29/24 11:40 Oxygen Delivery Room Air 07/29/24 11:40 Reviewed Discharge Plan Discharge Clinical Impression: Contact dermatitis and eczema Patient Disposition: Home Condition: Stable Instructions: Contact Dermatitis (DC), Eczema (ED) Additional Instructions: You were diagnosed with eczema and contact dermatitis. Follow printed instructions and use medications as prescribed and as discussed today. Start a daily antihistamine such as Zyrtec, May, and Claritin. You were referred to dermatology today. Follow up with your primary care provider. Patient Language: Yoruba Prescriptions: New methylprednisolone [Medrol (Benjamin)] 4 mg tablets,dose pack See Rx Instructions PO .COMPLEX Qty: 21 0RF Rx Instructions: orally per package directions triamcinolone acetonide 0.5 % cream 1 applic topical BID Qty: 15 0RF No Action lisdexamfetamine [Vyvanse] 50 mg capsule 50 mg PO DAILY duloxetine 30 mg capsule,delayed release(DR/EC) 30 mg PO DAILY Follow-up/Referrals: [place],DO Chano [Primary Care Provider] - [facility],Nataliia Worthy MD [Non-Staff] - (Address: [address] [place] [address] [address], [place] [address] ) Time of Disposition: 12:33
--- OUTSIDE RECORDS SUMMARY | 2024-07-29 13:27 | XMS_ITS | Clinical Summary ---
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
--- OUTSIDE RECORDS SUMMARY | 2024-07-29 13:27 | XMS_ITS | Encounter Summary ---
Author Organization [facility] Address [facility] [place] [address] Care Team Providers Care Service Plumber Name Role Phone Chano Bone DO Primary Care Provider + Encounter Details Date Type Department Care Team (Late Contact Info) Description 02/07/2024 [email or web address] Message Enc 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 Medical Group Family & Internal Medicine - [place] [address] [place] [address] Chano Bone DO [address] [place] [phone] documented as of this encounter Visit Diagnoses Not on filedocumented in this encounter Additional Health Concerns Assessment Noted Time PHQ-9 Depression Total Score: 8 06/28/19 9:47 AM CDT documented as of this encounter Care Teams Service Plumber Relationship Specialty Start Date End Date Chano Bone DO [address] [place] [phone] PCP - General FAMILY PRACTICE 06/27/21 documented as of this encounter
--- OUTSIDE RECORDS SUMMARY | 2024-07-29 13:27 | XMS_ITS | Clinical Summary ---
Author Organization [facility] Jaime Campo Address [address] [place] [address] Care Team Providers Care Stunner Animal Name Role Phone Unavailable Primary Care Provider [...] Encounters Date Type Department Care Team Description 07/28/2024 External Device Data [facility] ABSTRACTION Provider, Abstract 07/21/2024 4:15 PM CDT Telephone Check Up [facility] Oncology and Hematology - [place] [address] [place] [phone] Darshan Ventura MD Leukopenia, unspecified type (Primary Dx) 07/07/2024 External Device Data [facility] ABSTRACTION Provider, Abstract 07/07/2024 External Device Data [facility] ABSTRACTION Provider, Abstract 07/07/2024 External Device Data [facility] ABSTRACTION Provider, Abstract 07/07/2024 Orders Only [facility] Hematology [place] [address] [place] [phone] Darshan Ventura MD 07/07/2024 Abstract [facility] and [facility]ematology - [place] [address] [place] [address] Darshan Ventura MD 07/06/2024 Orders Only [facility] and Hematology - [place] [address] [place] [address] Darshan Ventura MD 07/03/2024 Orders Only [facility] and Hematology - [place] [address] [place] [address] Darshan Ventura MD 2024 1:30 PM CDT Office Visit [facility] Oncology and Hematology - [place] [address] [place] [address] Darshan Ventura MD Leukopenia, unspecified type (Primary Dx) 2024 Abstract [facility] Oncology and Hematology - [place] [address] [place] [address] Darshan Ventura MD 2024 Orders Only 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 Gender Identity Not on file Sexual Orientation [...] 2024 1:30 PM CDT Plan of Treatment Health Maintenance Due Date Last Done Comments HEPATITIS B VACCINES (1 of 3 - 19+ 3-dose series) 1997 HPV/Cotest (21-29) 07/03/1999 CERVICAL CANCER SCREENING 2008 HPV/Cotest (30-65) 2008 PAP SMEAR 2008 BREAST CANCER SCREENING 2018 COLORECTAL SCREENING 07/03/2023 Colorectal Cancer Screening 07/03/2023 FIT-DNA Q 3 years 07/03/2023 FIT/FOBT Q 1 year 07/03/2023 Flex Sig/CT Colonography Q 5 years 07/03/2023 DTAP/TDAP/TD VACCINES (2 - T d or Tdap) 07/08/2023 07/07/2013 INFLUENZA VACCINE (#1) 2023 HPV VACCINES Aged Out No longer eligi [...] inal Result from Last 3 Months Insurance [employer]
--- OUTSIDE RECORDS SUMMARY | 2024-07-29 13:27 | XMS_ITS | Clinical Summary ---
Author Organization [facility] Address [facility] [place] [address] Care Team Providers Care Employee Communications Coordinator Name Role Phone Chano Bone Primary Care [...] Encounters Date Type Department Care Team Description 07/15/2024 Scan HEALTH INFO [facility]VCS Scanned, Doc [facility] Ultrasound (SCAN) 07/03/2024 Scan HEALTH INFO [facility] Scanned, Doc [facility] Pathology (SCAN) 2024 Scan HEALTH INFO [facility]VCS Scanned, Doc [facility] Lab (SCAN) from Last 3 Months Immunizations Immunization Administration Dates Next Due PFIZER COVID-19 (ORIGINAL [...] on file Legal Sex Female 10:48 AM STORY TELLER Gender Identity Female 06/27/2021 3:55 PM CDT Sexual Orientation Straight 06/27/2021 3: 55 PM CDT Occupation Industry Job Start Date Job End Date Not on file Not on file Not on file Not on file Last Filed Vital Signs Vital Sign Reading Time Taken Comments Blood Pressure 108/70 02/19/2024 9:56 AM STORY TELLER Pulse 71 02/19/2024 9:56 AM STORY TELLER Temperature 36.5 C (97.7 F) 02/19/2024 9:56 AM STORY TELLER Respiratory Rate 16 02/19/2024 9:56 AM STORY TELLER Oxygen Saturation 98% 02/19/2024 9:56 AM STORY TELLER Inhaled Oxygen Concentration - - Weight 63.8 kg (140 lb 11.2 oz) 02/19/2024 9:56 AM STORY TELLER Height 162.6 cm (5' 4 ) 02/19/2024 9:56 AM STORY TELLER Body Mass Index 24.15 02/19/2024 9:56 AM STORY TELLER Plan of Treatment Upcoming Encounters Date Type Department Care Team (Late st Contact Info) Description 08/05/2024 7:00 AM CDT Office Visit [facility] Medical Group Family & Internal Medicine - [address] [phone] Chano Bone, [address] [place] [address] Health Maintenance Due Date Last Done Comments [...] Cancer Screening with HPV 03/17/2024 PHQ-2 (Physician [place]) 04/08/2024 02/19/2024 COVID-19 Vaccine ( season) 2025 [...] this topic Meningococcal Vaccine Aged Out No peret edie eligible based on patient's age to complete this topic Pneumococcal Vaccine: Pediatrics (0 to 5 Years) and At-Risk Patients (6 to 49 Years) Aged Out No longer eligible based on patient's age to complete this topic RSV Immunizations Under 20 Months Aged Out No longer eligible based on patient's age to complete this topic Procedures Procedure Name Priority Date/Time Associated Diagnosis Comments ULTRASOUND GENERIC (SCAN ORDER) 07/15/2024 PATHOLOGY GENERIC (SCAN ORDER) 07/03/2024 OUTSIDE LAB [...] Recently Relevant to Health Maintenance Results * ULTRASOUND GENERIC (SCAN ORDER) (07/15/2024) Anatomical Region Laterality Modality Other 07/15/2024 [email or web address] [facility] Scanned SCANNING Final Resu lt * PATHOLOGY GENERIC (SCAN ORDER) (07/03/2024) 07/03/2024 [email or web address] [facility] Scanned SCANNING Final Resu lt * OUTSIDE LAB (SCAN ORDER) (2024) Only the most recent of3 resultswithin the time period is included. 2024 [email or web address] [facility] Scanned SCANNING Final Resu lt * MAMMOGRAM GENERIC (01/16/2023) Anatomical Region Laterality Modality Other 01/16/2023 Result [employer] [facility] Scanned SCANNING Final Resu lt * HEPATITIS C ANTIBODY (06/27/2021 10:23 AM CDT) HEPATITIS C AB NON-REACTI VE NON-REACT YO 06/27/2021 7:25 PM CDT [facility] Comment: ANTIBODIES TO HCV NOT DETECTED. DOES NOT EXCLUDE THE POSSIBILITY OF EXPOSURE TO HCV. 06/27/2021 10:2 3 AM CDT Result [employer] Chano Bone DO LABORATORY Final Re sult [facility] [address] [place] [address], [id number] * OUTSIDE CYTOPATH CERV/VAG INTERPRET (PAP) (11/27/2019) 11/27/2019 Narrative 11/27/2019 Ordered by an unspecified provider. us Documents Scanned SCANNING Final Result * OUTSIDE CYTOPATH VAG/CERV PAP WITH HPV (03/17/2019) 03/17/2019 Narrative 03/17/2019 Ordered by an unspecified provider. us Documents Scanned SCANNING Final Result from Last 3 Months or Most Recently Relevant to Health Maintenance Insurance [facility] Care Teams Employee Communications Coordinator Relationship Specialty Start Date End Date Chano Bone DO [address] [place] [id number] PCP - General FAMILY PRACTICE 06/27/21
--- OUTSIDE RECORDS SUMMARY | 2024-07-29 13:27 | XMS_ITS | Encounter Summary ---
Author Organization [facility] Address [facility] [place] [address] Care Team Providers Care Refrigeration Specialist Name Role Phone Chano Bone DO Primary Care Provider + Encounter Details Date Type Department Care Team (Late Contact Info) Description 02/25/[address] [facility] Medical Group Family & Internal Medicine 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 Medical Group Family & Internal Medicine - [address] [phone] Chano Bone DO [address] [place] [address] documented as of this encounter Visit Diagnoses Not on filedocumented in this encounter Additional Health Concerns Assessment Noted Time PHQ-9 Depression Total Score: 8 06/28/19 9:47 AM CDT documented as of this encounter Care Teams Refrigeration Specialist Relationship Specialty Start Date End Date Chano Bone DO [address] [place] [phone] PCP - General FAMILY PRACTICE 06/27/21 documented as of this encounter
--- OUTSIDE RECORDS SUMMARY | 2024-07-29 13:27 | XMS_ITS | Encounter Summary ---
Author Organization [facility] Address [address] [place] [address] Care Team Providers Care Charter Driver Name Role Phone Unavailable Primary Care Provider Unavailabl e Encounter Details Date Type Department Care Team (Late st Contact Info) Description 05/24/1999 Outpatient Historical [facility] Kathrine Cheek MD NO ADDRESS ON FILE Er, Authorized P NO ADDRESS ON FILE Contusion of forearm (Primary Dx) Social History Tobacco Use Types Packs/Day Years Used Date Smoking Tobacco: Never Assessed Comments Unknown Sex and Gender Information Value Date Recorded Sex Assigned at Not on file Legal Sex Female 5:22 PM OPHTHALMIC PHOTOGRAPHER Gender Identity Not on file Sexual Orientation Not on file documented as of this encounter Plan of Treatment Not on file documented as of this encounter Visit Diagnoses Diagnosis Contusion of forearm- Primary documented in this encounter
--- OUTSIDE RECORDS SUMMARY | 2024-07-29 13:27 | XMS_ITS | Encounter Summary ---
Author Organization [facility] Address [address] [place] [address] Care Team Providers Care Nuclear Criticality Safety Engineer Name Role Phone Unavailable Primary Care Provider Unavailabl e Encounter Details Date Type Department Care Team (Late st Contact Info) Description 07/28/2024 External Device Data [facility] ABSTRACTION Provider, Abstract NO ADDRESS ON FILE Social History Tobacco Use Types Packs/Day Years Used Date Smoking Tobacco: Never Smokeless Tobacco: Never Alcohol Use Standard Drinks/Week Comments Yes 0 (1 standard drink = 0.6 oz pur e alcohol) Occasionally Comments Unknown Sex and Gender Information Value Date Recorded Sex Assigned at Not on file Legal Sex Female 5:22 PM PROGRAMMER NUMERICAL CONTROL Gender Identity Not on file Sexual Orientation Not on file documented as of this encounter Plan of Treatment Not on file documented as of this encounter Visit Diagnoses Not on filedocumented in this encounter
--- OUTSIDE RECORDS SUMMARY | 2024-07-29 13:27 | XMS_ITS | Encounter Summary ---
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 Gender Identity Female 06/27/2021 3:55 PM CDT Sexual Orientation Straight 06/27/2021 3: 55 PM CDT Occupation Industry Job Start Date Job End Date Not on file Not on file Not on file Not on file documented as of this encounter Plan of Treatment Upcoming Encounters Date Type Department Care Team (Late Contact Info) Description 08/05/2024 7:00 AM CDT Office Visit [facility] Medical Group Family & Internal Medicine - [place] [address] [place] [address] Chano Bone DO [address] [place] [phone] documented as of this encounter Visit Diagnoses Not on filedocumented in this encounter Additional Health Concerns Assessment Noted Time PHQ-9 Depression Total Score: 8 06/28/19 9:47 AM CDT documented as of this encounter Care Teams Granite Polisher Apprentice Relationship Specialty Start Date End Date Chano Bone DO [address] [place] [phone] PCP - General FAMILY PRACTICE 06/27/21 documented as of this encounter
--- OUTSIDE RECORDS SUMMARY | 2024-07-29 13:27 | XMS_ITS | Referral Summary ---
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
--- OUTSIDE RECORDS SUMMARY | 2024-07-29 13:28 | XMS_ITS | Patient Health Record ---
Author Organization [facility] [employer] [facility] Address [address] [place] [address] Care Team Providers Care Advanced Practice Registered Nurse Name Role Phone Chano Bone DO Primary Care Provider Anoop Oconnell Unavailable [phone] Sajan Lozano Unavailable [phone] Migration, Provider Unavailable Unavailable Allergies Allergen (clinical drug ingredient) Drug/Non Drug Allergy documented on EMR Reaction Allergy Type Onset Date Status codeine Codeine Unknown Drug Allergy 06/11/2023 Active Results Component Value Reference Range Notes UDT Reviewed date:09/13/2023 01:16:48 PM Interpretation: Performing Lab: Notes/Report: THC positive 0 - 50 ng/ml Cocaine negative Amphetamine negative Buprenorphine (BUP) negative Secobarbital (Bar) negative Oxazepam (BZO) negative 3-ackrrggsak-9,4-gjunasmh-0, 3-diphenylpyrrolidine (EDDP) negative Methamphetamine (MET) negative Methylenedioxymethamphetamine (MDMA) negative Morphine (MOP 300/YTF3559) negative Methadone (MTD) negative Phencyclidine (PCP) negative Nortriptyline (TCA) negative x negative UDT Reviewed date:05/26/2024 02:09:53 PM Interpretation: Performing Lab: Notes/Report: THC N 0 - 50 ng/ml Cocaine N 0 - 300 ng/ml Amphetamine P 0 - 1000 ng/ml Buprenorphine (BUP) N 0 - 10 ng/ml Secobarbital (Bar) N 0 - 300 ng/ml Oxazepam (BZO) N 0 - 300 ng/ml 5-bunteqegff-7,5-ivnywllo-2, 3-diphenylpyrrolidine (EDDP) N 0 - 300 ng/ml Methamphetamine (MET) N 0 - 1000 ng/ml Methylenedioxymethamphetamine (MDMA) N 0 - 500 ng/ml Morphine (MOP 300/ODH1911) N 0 - 300 ng/ml Methadone (MTD) N 0 - 300 ng/ml Phencyclidine (PCP) N 0 - 25 ng/ml Nortriptyline (TCA) N 0 - 1000 ng/ml Oxycodone N 0 - 300 ng/ml x N 0 - 300 ng/ml Reason For Referral No Information Medications Medication SIG (Take, Route, Frequency, Duration) Notes Start Date End Date Status Lisdexamfetamine Dimesylate 60 MG 1 capsule in the morning Oral Once a day for 30 days 07/20/2024 Active prednisoLONE Acetate 1 % Ophthalmic for 25 Days Not-Taking Zepbound 5 MG/0.5ML INJECT 5MG SUBCUTANEOUSLY ONCE A WEEK, EVERY 7 DAYS Subcutaneous for 28 Days Not-Taking Vyvanse 70 MG TAKE 1 CAPSULE BY MO [facility] ONCE DAILY IN THE MORNING FOR 30 DAYS Oral for 30 Days Not-Taking DULoxetine HCl 60 MG TAKE 1 CAPSULE BY M [facility] ONCE DAILY Oral for 30 Days Not-Taking Vyvanse 50 MG Oral for 30 Days Not-Taking Mounjaro 5 MG/0.5ML INJECT 5MG SUBCUTANEOUSLY ONCE A WEEK, EVERY 7 DAYS Subcutaneous for 28 Days Not-Taking Vyvanse 50 MG TAKE 1 CAPSULE BY MO [facility] ONCE DAILY IN THE MORNING Oral for 30 Days Not-Taking Vyvanse 70 MG Oral for 30 Days Not-Taking DULoxetine HCl 60 MG Oral for 30 Days Not-Taking Lisdexamfetamine Dimesylate 50 MG Oral for 20 Days Not-Mark ing lamoTRIgine 100 MG Oral for 30 Days Not-Taking Azelastine HCl 0.05 % INSTILL 1 DROP INT O EACH EYE TWICE DAILY FOR 7 DAYS Ophthalmic for 25 Days Not-Taking Azelastine HCl 0.05 % Ophthalmic for 25 Days Not-Taking lamoTRIgine 100 MG TAKE 1 TABLET BY [facility] TWICE DAILY Oral for 30 Days Not-Taking Polymyxin B-Trimethoprim 76879-0.1 UNIT/ML Ophthalmic for 5 Days N ot-Taking DULoxetine HCl 30 MG 1 capsule Oral Once a day for 90 days Active Immunizations Vaccine Route Administration Date Status Brian caruso [employer] Covid-19 Vac cine 2nd dose Unknown 11/23/2021 Administered Pfizer [employer] Covid-19 Vac cine 2nd dose Unknown 12/22/2021 Administered Tdap Unknown 07/07/2013 Administered Social History Tobacco Use: Social History Observation Description Date Details (start date - stop date) Never Smoker NA - NA Sex Assigned At : Social History Observation Description Sex Assigned At Female Tobacco Control (Standard) Question Answer Notes Tobacco use: Nonsmoker Problems Problem Type SNOMED Code ICD Code Onset Dates Problem Status W/U Status Risk Notes Problem Mild recurrent major depression (31512141) Major depressive disorder, recurrent, mild (F33.0) 12/28/19 23 Active confirmed Problem Generalized anxiety disorder (69794726) Generalized anxiety disorder (F41.1) 06/11/19 24 Active confirmed Problem Attention deficit hyperactivity disorder, combined type (97410375) Attention-deficit hyperactivity disorder, combined type (F90.2) 11/01/19 23 Active confirmed Problem Binge eating disorder (185916112) Binge eating disorder (F50.81) 08/05/19 24 Active confirmed Vital Signs Heart Rate 79 /min 05/26/2024 Height-cm 162.56 cm 05/26/2024 Blood pressure diastolic 69 mm Hg 05/26/2024 Weight-kg 64.86 kg 05/26/2024 Height 64.00 in 05/26/2024 Blood pressure systolic 105 mm Hg 05/26/2024 Weight 143 lbs 05/26/2024 BMI 24.54 kg/m2 05/26/2024 Encounters Encounter Location Date Provider Diagnosis [facility] [employer] [facility] [address] [facility] [address] [address] 08/02/2023 Provider Migration Binge eating disorde r F50.81 [facility] [employer] [facility] [address] [address] 08/05/2023 Provider Migration Binge eating disorde r F50.81 [facility] [place] [id number] [facility] [address] [address] 09/13/2023 Anoop Heard Major depressive disorder, recurrent, mild F33.0 ; Generalized anxiety disorder F41.1 ; Attention-deficit hyperactivity disorder, combined type F90.2 and Binge eating disorder F50.81 [facility] [employer] [facility] [address] [facility] [address] [address] 01/13/2024 Anoop Heard Major depressive disorder, recurrent, mild F33.0 ; Generalized anxiety disorder F41.1 ; Attention-deficit hyperactivity disorder, combined type F90.2 and Binge eating disorder F50.81 [facility], [facility] [address] [place] [address] 02/24/2024 Anoop Heard Major depressive disorder, recurrent, mild F33.0 ; Generalized anxiety disorder F41.1 ; Attention-deficit hyperactivity disorder, combined type F90.2 and Binge eating disorder, mild F50.810 [facility], [facility] [address] [place] [address] 05/26/2024 Anoop Heard Major depressive disorder, recurrent, mild F33.0 ; Generalized anxiety disorder F41.1 ; Attention-deficit hyperactivity disorder, combined type F90.2 and Binge eating disorder, mild F50.810 [facility], [facility] [address] [place] [address] 08/01/2023 Provider Migration [facility], [facility] [address] [place] [address] 08/02/2023 Provider Migration [facility], [facility] [address] [place] [address] 08/05/2023 Provider Migration [facility], [facility] [address] [place] [address] 08/24/2023 Provider Migration [facility], [facility] [address] [place] [address] 08/25/2023 Provider Migration [facility], [facility] [address] [place] [address] 10/15/2023 Anoop Heard Binge eating disorde r F50.81 [facility], [facility] [address] [place] [address] 10/16/2023 Sajan [facility] [place], [facility] [address] [place] [address] 11/21/2023 Anoop Heard Binge eating disorde r F50.81 [facility], [facility] [address] [place] [address] 12/04/2023 Sajan [facility] [place], [facility] [address] [place] [address] 12/19/2023 Anoop Heard Binge eating disorde r F50.81 [facility], [facility] [address] [place] [address] 01/21/2024 Anoop Heard [facility], [facility] [address] [place] [address] 01/22/2024 Sajan [facility] [place], [facility] [address] [place] [address] 02/18/2024 Sajan [facility] [place], [facility] [address] [place] [address] 03/19/2024 Anoop Heard [facility], [facility] [address] [facility] [address] [place] [address] 04/20/2024 Anoop Heard [facility], [facility] [address] [facility] [address] [place] [address] 05/20/2024 Anoop Heard [facility], [facility] [address] [facility] [place] [address] 06/18/2024 Anoop Heard Attention-deficit hyperactivity disorder, combined type F90.2 [facility] [address] [facility] [place] [address] 07/20/2024 Anoop Heard Attention-deficit hyperactivity disorder, combined type F90.2 Assessments Encounter Date Diagnosis (ICD Code) Assessment Notes Treatment Notes Treatment Clinical Notes Section Notes 08/02/2023 Binge eating disorder (ICD-10 - F50.81) 08/05/2023 Binge eating disorder (ICD-10 - F50.81) 09/13/2023 Major depressive disorder, recurrent, mild (ICD-10 - F33.0) binge eating improved with Lisdexamfetamine, increase lisdexamfetamine to 60mg daily 09/13/2023 Generalized anxiety disorder (ICD-10 - F41.1) binge eating improved with Lisdexamfetamine, increase lisdexamfetamine to 60mg daily 10/15/2023 Binge eating disorder (ICD-10 - F50.81) 11/21/2023 Binge eating disorder (ICD-10 - F50.81) 12/19/2023 Binge eating disorder (ICD-10 - F50.81) 01/13/2024 Major depressive disorder, recurrent, mild (ICD-10 - F33.0) 1. ADHD: - Patient is currently on Vyvanse 60 mg daily and reports it is working well. Plan: - No changes needed at this time. Continue with lisdexamfetamine 60 mg daily. 2. Depression: - Patient reports no significant depressive symptoms and is interested in decreasing the dose of Cymbalta. Plan: - Decrease duloxetine from 60 mg to 30 mg daily and monitor for any changes in mood or anxiety. 3. Anxiety: - Patient denies any significant anxiety symptoms. Plan: - Continue to monitor with the decrease in duloxetine to 30 mg daily. 4. Binge Eating Disorder: - Patient reports no current binge eating episodes. Plan: - Continue with lisdexamfetamine 60 mg daily for ADHD and binge eating disorder management. 5. Weight Management: - Patient has discontinued Zepbound (last shot in October) and is focusing on maintaining weight through lifestyle changes. Plan: - Encourage continued healthy eating habits and regular exercise. Follow-up: - Schedule a follow-up appointment in 6 weeks to assess the patient's response to the decreased dose of duloxetine and to monitor overall mental health and weight management progress. 1. ADHD: - Patient is currently on Vyvanse 60 mg daily and reports it is working well. Plan: - No changes needed at this time. Continue with lisdexamfetamine 60 mg daily. 2. Depression: - Patient reports no significant depressive symptoms and is interested in decreasing the dose of Cymbalta. Plan: - Decrease duloxetine from 60 mg to 30 mg daily and monitor for any changes in mood or anxiety. 3. Anxiety: - Patient denies any significant anxiety symptoms. Plan: - Continue to monitor with the decrease in duloxetine to 30 mg daily. 4. Binge Eating Disorder: - Patient reports no current binge eating episodes. Plan: - Continue with lisdexamfetamine 60 mg daily for ADHD and binge eating disorder management. Follow-up: - Schedule a follow-up appointment in 6 weeks to assess the patient's response to the decreased dose of duloxetine and to monitor overall mental health and weight management progress. 02/24/2024 Major depressive disorder, recurrent, mild (ICD-10 - F33.0) 1. Depression and Anxiety: - Patient reports no increase in depression or anxiety symptoms. - Currently on duloxetine 30 mg, which patient tolerates well. Plan: - Continue duloxetine 30 mg daily. - Monitor for any changes in symptoms or side effects. - Follow up in 3 months or sooner if needed. 2. ADHD and Binge Eating Disorder: - Patient reports that lisdexamfetamine (Vyvanse) 60 mg is working well for her. Plan: - Continue lisdexamfetamine 60 mg daily. - Ensure patient has adequate refills and access to medication. - Follow up in 3 months or sooner if needed. 02/24/2024 Generalized anxiety disorder (ICD-10 - F41.1) stable 1. Depression and Anxiety: - Patient reports no increase in depression or anxiety symptoms. - Currently on duloxetine 30 mg, which patient tolerates well. Plan: - Continue duloxetine 30 mg daily. - Monitor for any changes in symptoms or side effects. - Follow up in 3 months or sooner if needed. 2. ADHD and Binge Eating Disorder: - Patient reports that lisdexamfetamine (Vyvanse) 60 mg is working well for her. Plan: - Continue lisdexamfetamine 60 mg daily. - Ensure patient has adequate refills and access to medication. - Follow up in 3 months or sooner if needed. 05/26/2024 Major depressive disorder, recurrent, mild (ICD-10 - F33.0) 06/18/2024 Attention-defic it hyperactivity disorder, combined type (ICD-10 - F90.2) 07/20/2024 Attention-defic it hyperactivity disorder, combined type (ICD-10 - F90.2) 05/26/2024 Generalized anxiety disorder (ICD-10 - F41.1) stable 02/24/2024 Attention-defic it hyperactivity disorder, combined type (ICD-10 - F90.2) [...] of underlying disorder that may require follow-up 1. Depression and Anxiety: - Patient reports no increase in depression or anxiety symptoms. - Currently on duloxetine 30 mg, which patient tolerates well. Plan: - Continue duloxetine 30 mg daily. - Monitor for any changes in symptoms or side effects. - Follow up in 3 months or sooner if needed. 2. ADHD and Binge Eating Disorder: - Patient reports that lisdexamfetamine (Vyvanse) 60 mg is working well for her. Plan: - Continue lisdexamfetamine 60 mg daily. - Ensure patient has adequate refills and access to medication. - Follow up in 3 months or sooner if needed. 01/13/2024 Generalized anxiety disorder (ICD-10 - F41.1) stable 1. ADHD: - Patient is currently on Vyvanse 60 mg daily and reports it is working well. Plan: - No changes needed at this time. Continue with lisdexamfetamine 60 mg daily. 2. Depression: - Patient reports no significant depressive symptoms and is interested in decreasing the dose of Cymbalta. Plan: - Decrease duloxetine from 60 mg to 30 mg daily and monitor for any changes in mood or anxiety. 3. Anxiety: - Patient denies any significant anxiety symptoms. Plan: - Continue to monitor with the decrease in duloxetine to 30 mg daily. 4. Binge Eating Disorder: - Patient reports no current binge eating episodes. Plan: - Continue with lisdexamfetamine 60 mg daily for ADHD and binge eating disorder management. 5. Weight Management: - Patient has discontinued Zepbound (last shot in October) and is focusing on maintaining weight through lifestyle changes. Plan: - Encourage continued healthy eating habits and regular exercise. Follow-up: - Schedule a follow-up appointment in 6 weeks to assess the patient's response to the decreased dose of duloxetine and to monitor overall mental health and weight management progress. 1. ADHD: - Patient is currently on Vyvanse 60 mg daily and reports it is working well. Plan: - No changes needed at this time. Continue with lisdexamfetamine 60 mg daily. 2. Depression: - Patient reports no significant depressive symptoms and is interested in decreasing the dose of Cymbalta. Plan: - Decrease duloxetine from 60 mg to 30 mg daily and monitor for any changes in mood or anxiety. 3. Anxiety: - Patient denies any significant anxiety symptoms. Plan: - Continue to monitor with the decrease in duloxetine to 30 mg daily. 4. Binge Eating Disorder: - Patient reports no current binge eating episodes. Plan: - Continue with lisdexamfetamine 60 mg daily for ADHD and binge eating disorder management. Follow-up: - Schedule a follow-up appointment in 6 weeks to assess the patient's response to the decreased dose of duloxetine and to monitor overall mental health and weight management progress. 09/13/2023 Attention-defic it hyperactivity disorder, combined type (ICD-10 - F90.2) binge eating improved with Lisdexamfetamine, increase lisdexamfetamine to 60mg daily 09/13/2023 Binge eating disorder (ICD-10 - F50.81) increase lisdexamfetamine to 60mg daily binge eating improved with Lisdexamfetamine, increase lisdexamfetamine to 60mg daily 01/13/2024 Attention-defic it hyperactivity disorder, combined type (ICD-10 - F90.2) [...] of underlying disorder that may require follow-up 1. ADHD: - Patient is currently on Vyvanse 60 mg daily and reports it is working well. Plan: - No changes needed at this time. Continue with lisdexamfetamine 60 mg daily. 2. Depression: - Patient reports no significant depressive symptoms and is interested in decreasing the dose of Cymbalta. Plan: - Decrease duloxetine from 60 mg to 30 mg daily and monitor for any changes in mood or anxiety. 3. Anxiety: - Patient denies any significant anxiety symptoms. Plan: - Continue to monitor with the decrease in duloxetine to 30 mg daily. 4. Binge Eating Disorder: - Patient reports no current binge eating episodes. Plan: - Continue with lisdexamfetamine 60 mg daily for ADHD and binge eating disorder management. 5. Weight Management: - Patient has discontinued Zepbound (last shot in October) and is focusing on maintaining weight through lifestyle changes. Plan: - Encourage continued healthy eating habits and regular exercise. Follow-up: - Schedule a follow-up appointment in 6 weeks to assess the patient's response to the decreased dose of duloxetine and to monitor overall mental health and weight management progress. 1. ADHD: - Patient is currently on Vyvanse 60 mg daily and reports it is working well. Plan: - No changes needed at this time. Continue with lisdexamfetamine 60 mg daily. 2. Depression: - Patient reports no significant depressive symptoms and is interested in decreasing the dose of Cymbalta. Plan: - Decrease duloxetine from 60 mg to 30 mg daily and monitor for any changes in mood or anxiety. 3. Anxiety: - Patient denies any significant anxiety symptoms. Plan: - Continue to monitor with the decrease in duloxetine to 30 mg daily. 4. Binge Eating Disorder: - Patient reports no current binge eating episodes. Plan: - Continue with lisdexamfetamine 60 mg daily for ADHD and binge eating disorder management. Follow-up: - Schedule a follow-up appointment in 6 weeks to assess the patient's response to the decreased dose of duloxetine and to monitor overall mental health and weight management progress. 02/24/2024 Binge eating disorder, mild (ICD-10 - F50.810) lisdexamfetamine 60mg daily 1. Depression and Anxiety: - Patient reports no increase in depression or anxiety symptoms. - Currently on duloxetine 30 mg, which patient tolerates well. Plan: - Continue duloxetine 30 mg daily. - Monitor for any changes in symptoms or side effects. - Follow up in 3 months or sooner if needed. 2. ADHD and Binge Eating Disorder: - Patient reports that lisdexamfetamine (Vyvanse) 60 mg is working well for her. Plan: - Continue lisdexamfetamine 60 mg daily. - Ensure patient has adequate refills and access to medication. - Follow up in 3 months or sooner if needed. 05/26/2024 Attention-defic it hyperactivity disorder, combined type (ICD-10 - F90.2) [...] mild (ICD-10 - F50.810) lisdexamfetamine 60mg daily 01/13/2024 Binge eating disorder (ICD-10 - F50.81) lisdexamfetamine 60mg daily 1. ADHD: - Patient is currently on Vyvanse 60 mg daily and reports it is working well. Plan: - No changes needed at this time. Continue with lisdexamfetamine 60 mg daily. 2. Depression: - Patient reports no significant depressive symptoms and is interested in decreasing the dose of Cymbalta. Plan: - Decrease duloxetine from 60 mg to 30 mg daily and monitor for any changes in mood or anxiety. 3. Anxiety: - Patient denies any significant anxiety symptoms. Plan: - Continue to monitor with the decrease in duloxetine to 30 mg daily. 4. Binge Eating Disorder: - Patient reports no current binge eating episodes. Plan: - Continue with lisdexamfetamine 60 mg daily for ADHD and binge eating disorder management. 5. Weight Management: - Patient has discontinued Zepbound (last shot in October) and is focusing on maintaining weight through lifestyle changes. Plan: - Encourage continued healthy eating habits and regular exercise. Follow-up: - Schedule a follow-up appointment in 6 weeks to assess the patient's response to the decreased dose of duloxetine and to monitor overall mental health and weight management progress. 1. ADHD: - Patient is currently on Vyvanse 60 mg daily and reports it is working well. Plan: - No changes needed at this time. Continue with lisdexamfetamine 60 mg daily. 2. Depression: - Patient reports no significant depressive symptoms and is interested in decreasing the dose of Cymbalta. Plan: - Decrease duloxetine from 60 mg to 30 mg daily and monitor for any changes in mood or anxiety. 3. Anxiety: - Patient denies any significant anxiety symptoms. Plan: - Continue to monitor with the decrease in duloxetine to 30 mg daily. 4. Binge Eating Disorder: - Patient reports no current binge eating episodes. Plan: - Continue with lisdexamfetamine 60 mg daily for ADHD and binge eating disorder management. Follow-up: - Schedule a follow-up appointment in 6 weeks to assess the patient's response to the decreased dose of duloxetine and to monitor overall mental health and weight management progress. 05/26/2024 Other 1. ADHD: - Patient reports [...] to reassess the patient's progress and medication effectiveness . Plan Of Treatment Next Appt Details Provider Name:Anoop rodriges, 09/22/2024 01:00:00 PM, [address] [facility] [address], [facility] [address], [place], [address], Insurance Providers Payer Name Payer Address Payer Phone Subscriber Number Group Number Insured Name Patient Relationship to Insured Coverage Start Date Coverage End Date [facility] [address] [address] [place] [address] [id number] ROSEMARIE SALDAÑA Self - patient is the insured Medical (General) History Medical History History ICD Code Problems: Attention deficit hyperactivit y disorder, combined type Binge eating disorder Fatigue Generalized anxiety disorder Long-term current use of drug therapy Major depression in full remission Vitamin D deficiency , Surgical History Surgery Date(Month/Year) Other 02/10/2005
--- OUTSIDE RECORDS SUMMARY | 2024-07-29 13:28 | XMS_ITS | Encounter Summary ---
Author Organization [facility] Address [facility] [place] [address] Care Team Providers Care [facility] Name Role Phone Chano Bone DO Primary Care Provider + Encounter Details Date Type Department Care Team (Late Contact Info) Description 05/25/2022 ChirpVisiont Message Enc [facility] Family & Internal Medicine [facility] [address] [place] [phone] Chano Bone DO [address] [place], [place] [phone] Weight lose injection medication Social History Tobacco [...] on file 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 Gender Identity Female 06/27/2021 3:55 PM CDT Sexual Orientation Straight 06/27/2021 3: 55 PM CDT Occupation Industry Job Start Date Job End Date Not on file Not on file Not on file Not on file documented as of this encounter Plan of Treatment Upcoming Encounters Date Type Department Care Team (Late Contact Info) Description 08/05/2024 7:00 AM CDT Office Visit [facility] Family & Internal Medicine - [address] [phone] Chano Bone DO [address] [place] [id number] documented as of this encounter Visit Diagnoses Not on filedocumented in this encounter Additional Health Concerns Assessment Noted Time PHQ-9 Depression Total Score: 8 06/28/19 9:47 AM CDT documented as of this encounter Care Teams [facility] Relationship Specialty Start Date End Date Chano Bone DO [address] [place] [id number] PCP - General FAMILY PRACTICE 06/27/21 documented as of this encounter
== END 2024-07-29 12:36 | disposition home or self-care (01) ==
PROVIDERS: Emergency Provider Nurse Practitioner; PCP Student in an Organized Health Care Education/Training Program
DX: L30.9 Dermatitis, unspecified (principal); Z87.891 Personal history of nicotine dependence
CPT/HCPCS: 99213; G0463